=== PATIENT | male | born 1965 | race Caucasian/White ===

== ENCOUNTER 2023-12-30 10:04 | Outpatient (AMB) | payer BC, SELFPAY ==
--- NOTE | 2023-12-30 09:15 | A.OFFPSYCH_ITS ---
Intake Vital Signs 12/30/23 09:16 Height 5 ft 10 in Weight 210 lb Intake Visit Reasons: Booked, Major depression, recurrent, YUSEF (generalized anxiety disorder), ADHD Medication List - Last Reconciled 12/30/23 by Philomena Delgado APRN amlodipine 10 mg PO DAILY atorvastatin 10 mg PO DAILY blood sugar diagnostic (FreeStyle Lite Strips) As directed clonazepam 1 mg PO TID PRN dextroamphetamine-amphetamine 30 mg 1 tab PO BID folic acid 1 mg PO DAILY ibuprofen 400 mg PO TID levothyroxine mcg PO metformin 500 mg PO BID ondansetron HCl mg PO paroxetine HCl 10 mg PO DAILY HPI- Psychiatric Chief Complaint: Booked, Major depression, recurrent, YUSEF (generalized anxiety disorder), ADHD HPI Narrative: Pt reports more anxiety and worry; he has returned to work; he is done with chemotherpay and has had surgery to reverse the colostomy; he reports many days not wanting to get out of bed. He feels confident with his providers. The clonazepam is helpful for increased anxiety and insomnia; He is sleeping a little better with the hydroxyzine. he denies SI or HI; He reports his is very supportive. He feels medication is helpful. Past Psychiatric History: No IPLOC Dr. Goss diagnosed him with ADHD 2014. Pt has been treated for anxiety, depression, ADHD and panic attacks for years; anxiety and panic attacks started in early 30s, depression has improved since on meds. He reports panic attacks decreased now to 1 x month or less Panic attacks: Yes Agoraphobia: No Separation anxiety disorder: No Social phobia: No Specific phobia: No Hypochondriasis: No Body dysmorphic disorder: No Obsessive compulsive disorder: No Generalized anxiety: Yes Post traumatic stress disorder: No Acute stress disorder: No Previous psychiatric history: No Previous inpatient psychiatric hospitalization: No Other previous psychiatric treatment programs: none History of suicidal ideation: No History of suicide attempt: No Medically hospitalized: No History of self injurious behavior: No History of violence: No Current/previous psychiatrist: savana Current/previous therapist: dr goss Subjective Subjective Subjective Medication Compliance: Yes Side effects from medications: No Review of Systems Medical Review of Systems: unchanged Review of Systems Review of Systems Yes all other systems are reviewed and are negative Mental Status Exam Mental Status Exam Patient Appearance: Well Grooomed and Appropriate Patient Orientation: Person, Place, Time and Situation Level of Consciousness: Awake and Alert Patient Behavior: Appropriate and Cooperative Mood Description: Anxious and Sad Affect Description: Anxious and Sad Patient Cognition Impaired: No Ability to Follow Directions: Good Speech Pattern: Clear and Coherent Memory Description: Intact Hallucinations: None Delusions: Not Present Thought Process: Intact and Goal Oriented Thought Content: positive for Intact and positive for Goal Oriented Judgement: Good Assessment and Plan Assessment & Plan (1) Recurrent major depressive disorder: Qualifiers: Major depression episode severity: moderate Active/Remission status: currently active Qualified Code(s): F33.1 - Major depressive disorder, recurrent, moderate Code(s): F33.9 - Major depressive disorder, recurrent, unspecified (2) Generalized anxiety disorder: Code(s): F41.1 - Generalized anxiety disorder Plan increase paxil to 20 mg daily for depression and anxiety continue clonazepam and adderall Medications: New paroxetine HCl (Paxil) 20 mg PO DAILY 30 tabs 3RF clonazepam 1 mg PO TID PRN 90 tabs 2RF anxiety dextroamphetamine-amphetamine 30 mg 1 tab PO BID 60 tabs 0RF Counseling and coordination of Care Pt. Self Management counseling: Light exposure, Maintenance-social rhythm, Med illness tx adherence, Sleep hygiene, Behavior activation and General coping skills Medication management counseling: Effectiveness, Side effects, Dosing range, Duration, Drug interaction and Adherence Diagnosis and Prognosis Counseling: Accuracy of diagnosis, Prognosis over time, Impact of diagnosis on life functions, Impact of family relationship, Problematic behaviors secondary to diagnosis and Adequacy of current interventions Details: I spent 30 minutes reviewing the record, seeing the patient and documenting in the medical record. Counseling provided to the patient/caregiver as outlined below. Addressed patient/caregiver concerns regarding current medication regime including effective adherence. Addressed patient/caregiver concerns regarding diagnosis and prognosis including accuracy of diagnosis, prognosis over time, impact of diagnosis. Addressed patient/caregiver concerns regarding impact of recent stressors. 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
== END 2023-12-30 11:55 | disposition home or self-care (01) ==
LOC: HO.HOP 10:04
PROVIDERS: PCP Internal Medicine; Visit Provider Clinical Nurse Specialist Psychiatric/Mental Health
DX: F33.1 Major depressive disorder, recurrent, moderate (principal); F41.1 Generalized anxiety disorder
CPT/HCPCS: 99214

== ENCOUNTER → 2023-12-30 10:04 | Outpatient (BNVA) | payer BC, SELFPAY | PROVIDERS: PCP Internal Medicine; Visit Provider Clinical Nurse Specialist Psychiatric/Mental Health ==

== ENCOUNTER 2024-02-29 12:56 | Outpatient (AMB) | payer BC, SELFPAY ==
--- NOTE | 2024-02-29 13:18 | A.OFFPSYCH_ITS ---
Intake Intake Visit Reasons: depression, anxiety, ADHD Fruit Receiver Required: No Medication List - Last Reconciled 02/29/24 by Philomena Delgado APRN amlodipine 10 mg PO DAILY atorvastatin 10 mg PO DAILY blood sugar diagnostic (FreeStyle Lite Strips) As directed clonazepam 1 mg PO TID PRN dextroamphetamine-amphetamine 30 mg 1 tab PO BID folic acid 1 mg PO DAILY ibuprofen 400 mg PO TID levothyroxine mcg PO metformin 500 mg PO BID ondansetron HCl mg PO paroxetine HCl (Paxil) 20 mg PO DAILY HPI- Psychiatric Chief Complaint: depression, anxiety, ADHD HPI Narrative: pt reports very little depression; reports anxiety and worry; he reports his cancer treatmetn with surgical removal of most of his colon has caused side effects; he has unpredictable and frequent bowel movements. it has effected his work and out of work activities. it has efffected his self concept; he is coping weill despite the stress; he is able to talk to others about the experience nad the stress; he has good family support; medication continue to be effective. He reports brief solution therapy in session is helpful. Past Psychiatric History: No IPLOC Dr. Galarza diagnosed him with ADHD 2014. Pt has been treated for anxiety, depression, ADHD and panic attacks for years; anxiety and panic attacks started in early 30s, depression has improved since on meds. He reports panic attacks decreased now to 1 x month or less Subjective Subjective Subjective Medication Compliance: Yes Side effects from medications: No Review of Systems Medical Review of Systems: unchanged Mental Status Exam Mental Status Exam Patient Appearance: Well Grooomed Patient Orientation: Person, Place, Time and Situation Level of Consciousness: Awake and Appropriate Patient Behavior: Appropriate Mood Description: Appropriate and Anxious Affect Description: Appropriate and Anxious Patient Cognition Impaired: No Ability to Follow Directions: Good Speech Pattern: Clear and Appropriate Memory Description: Intact Hallucinations: None Delusions: Not Present Thought Process: Intact and Goal Oriented Thought Content: positive for Intact and positive for Goal Oriented Judgement: Fair Assessment and Plan Assessment & Plan (1) ADHD (attention deficit hyperactivity disorder), combined type: Status: Acute Code(s): F90.2 - Attention-deficit hyperactivity disorder, combined type (2) Major depressive disorder, recurrent, in partial remission: Status: Acute Code(s): F33.41 - Major depressive disorder, recurrent, in partial remission (3) YUSEF (generalized anxiety disorder): Status: Acute Code(s): F41.1 - Generalized anxiety disorder Plan continue medication below continue brief solution oriented therapy return in 2 months Medications: Refilled dextroamphetamine-amphetamine 30 mg 1 tab PO BID 60 tabs 0RF clonazepam 1 mg PO TID PRN 90 tabs 2RF anxiety paroxetine HCl (Paxil) 20 mg PO DAILY 30 tabs 3RF Counseling and coordination of Care Medication management counseling: Effectiveness, Side effects, Dosing range, Duration, Drug interaction and Adherence Diagnosis and Prognosis Counseling: Accuracy of diagnosis, Prognosis over time, Impact of diagnosis on life functions, Impact of family relationship, Problematic behaviors secondary to diagnosis and Adequacy of current interventions Details: I spent 45 minutes reviewing the record, seeing the patient and documenting in the medical record. Counseling provided to the patient/caregiver as outlined below. Addressed patient/caregiver concerns regarding current medication regime including effective adherence. Addressed patient/caregiver concerns regarding diagnosis and prognosis including accuracy of diagnosis, prognosis over time, impact of diagnosis. Addressed patient/caregiver concerns regarding impact of recent stressors. 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
== END 2024-02-29 16:40 | disposition home or self-care (01) ==
LOC: HO.HOP 12:56
PROVIDERS: PCP Internal Medicine; Visit Provider Clinical Nurse Specialist Psychiatric/Mental Health
DX: F90.2 Attention-deficit hyperactivity disorder, combined type (principal); F33.41 Major depressive disorder, recurrent, in partial remission; F41.1 Generalized anxiety disorder
CPT/HCPCS: 90833; 99214

== ENCOUNTER → 2024-02-29 12:56 | Outpatient (BNVA) | payer BC, SELFPAY | PROVIDERS: PCP Internal Medicine; Visit Provider Clinical Nurse Specialist Psychiatric/Mental Health ==

== ENCOUNTER 2024-05-01 17:24 | Outpatient (AMB) | payer BC, SELFPAY ==
--- NOTE | 2024-05-01 10:37 | MHC.OFFVISPS ---
Intake Intake Visit Reasons: depression, anxiety Stave And Bolt Equalizer Required: No Medication List - Last Reconciled 05/01/24 by Philomena Delgado APRN amlodipine 10 mg PO DAILY atorvastatin 10 mg PO DAILY blood sugar diagnostic (FreeStyle Lite Strips) As directed clonazepam 1 mg PO TID PRN dextroamphetamine-amphetamine 30 mg 1 tab PO BID folic acid 1 mg PO DAILY ibuprofen 400 mg PO TID levothyroxine mcg PO metformin 500 mg PO BID ondansetron HCl mg PO paroxetine HCl 30 mg PO DAILY HPI- Psychiatric Chief Complaint: depression, anxiety HPI Narrative: anxiety is very high; he has fecal incontinenece every day from after effects of colon cancer treatment; he says it requires several trips to bathroom many times a day and disruptive to his daily life at work and with family; He finds himself anxious and worried about it all the time; pt has tolerated paxil 30mg daily n past and agrees to increase the paxil to seei f that will help; he is working with his PCP and GI doctors to reduce the fecal incontinence. no SI or Hi Past Psychiatric History: No IPLOC Dr. Galarza diagnosed him with ADHD 2014. Pt has been treated for anxiety, depression, ADHD and panic attacks for years; anxiety and panic attacks started in early 30s, depression has improved since on meds. He reports panic attacks decreased now to 1 x month or less Subjective Subjective Subjective Medication Compliance: Yes Side effects from medications: No Review of Systems Medical Review of Systems: unchanged Mental Status Exam Mental Status Exam Patient Appearance: Well Grooomed and Appropriate Patient Orientation: Person, Place, Time and Situation Level of Consciousness: Awake Patient Behavior: Appropriate Mood Description: Anxious Affect Description: Anxious Patient Cognition Impaired: No Ability to Follow Directions: Good Speech Pattern: Clear Memory Description: Intact Hallucinations: None Delusions: Not Present Thought Process: Intact and Goal Oriented Thought Content: positive for Intact and positive for Goal Oriented Judgement: Good Telehealth Telehealth Telehealth Platform: Other (please specify) ([email or web address]) Location of provider rendering services: practice address Location of patient: address on file Patient Identification confirmed using: Name, : Yes Telehealth method: video Patient verbally consented to treatment: Yes Patient verbally consented to billing insurance company: Yes Patient informed of any privacy concerns related to visit: Yes Minutes spent on Phone/Video with Pt.: 25 Assessment and Plan Assessment & Plan (1) YUSEF (generalized anxiety disorder): Status: Acute Code(s): F41.1 - Generalized anxiety disorder (2) Major depressive disorder, recurrent, in partial remission: Status: Acute Code(s): F33.41 - Major depressive disorder, recurrent, in partial remission (3) ADHD (attention deficit hyperactivity disorder), combined type: Status: Acute Code(s): F90.2 - Attention-deficit hyperactivity disorder, combined type Plan continue adderall as is continue clonazepam as is increase paxil to 30mg daily Medications: New paroxetine HCl 30 mg PO DAILY 90 tabs 1RF Counseling and coordination of Care Pt. Self Management counseling: Mod caffeine/ETOH intake, Sleep hygiene, Behavior activation and General coping skills Medication management counseling: Effectiveness, Side effects, Dosing range, Duration, Drug interaction and Adherence Diagnosis and Prognosis Counseling: Accuracy of diagnosis, Prognosis over time, Impact of diagnosis on life functions, Impact of family relationship, Problematic behaviors secondary to diagnosis and Adequacy of current interventions Details: I spent 36 minutes reviewing the record, seeing the patient and documenting in the medical record. Counseling provided to the patient/caregiver as outlined below. Addressed patient/caregiver concerns regarding current medication regime including effective adherence. Addressed patient/caregiver concerns regarding diagnosis and prognosis including accuracy of diagnosis, prognosis over time, impact of diagnosis. Addressed patient/caregiver concerns regarding impact of recent stressors. [facility] Medical History GERD (gastroesophageal reflux disease) Congenital hypothyroidism Colon cancer metastasized to liver Surgical History History of colostomy reversal Social History: lives with and youngest child, works FT in [employer] Substance History: none Trauma History: loss of sister to ovarian cancer, loss of niece to flu Coding Level of Care Code Tele Est Pt Level 4 (33430) Diagnoses YUSEF (generalized anxiety disorder) F41.1 Major depressive disorder, recurrent, in partial remission F33.41 ADHD (attention deficit hyperactivity disorder), combined type F90.2
== END 2024-05-01 17:27 | disposition home or self-care (01) ==
LOC: HO.HOP 17:24
PROVIDERS: PCP Internal Medicine; Visit Provider Clinical Nurse Specialist Psychiatric/Mental Health
DX: F41.1 Generalized anxiety disorder (principal); F33.41 Major depressive disorder, recurrent, in partial remission; F90.2 Attention-deficit hyperactivity disorder, combined type
CPT/HCPCS: 99214

== ENCOUNTER → 2024-05-01 17:24 | Outpatient (BNVA) | payer BC, SELFPAY | PROVIDERS: PCP Internal Medicine; Visit Provider Clinical Nurse Specialist Psychiatric/Mental Health | DX: F41.1 Generalized anxiety disorder (principal); F33.41 Major depressive disorder, recurrent, in partial remission; F90.2 Attention-deficit hyperactivity disorder, combined type ==

== ENCOUNTER 2024-06-05 10:37 | Outpatient (AMB) | payer BC, SELFPAY ==
--- NOTE | 2024-06-05 10:03 | MHC.OFFVISPS ---
Intake Intake Visit Reasons: depression Care Associate Required: No Medication List - Last Reconciled 06/05/24 by Philomena Delgado APRN amlodipine 10 mg PO DAILY atorvastatin 10 mg PO DAILY blood sugar diagnostic (FreeStyle Lite Strips) As directed clonazepam 1 mg PO TID PRN dextroamphetamine-amphetamine 30 mg 1 tab PO BID folic acid 1 mg PO DAILY ibuprofen 400 mg PO TID levothyroxine mcg PO metformin 500 mg PO BID ondansetron HCl mg PO paroxetine HCl 30 mg PO DAILY HPI- Psychiatric Chief Complaint: depression HPI Narrative: Pt reports mood improved; anxiety continues but improved; his medical conditin is improving which is helping; He is coping better overall; no side effects; no problems sleeping; work and home going well. Past Psychiatric History: No IPLOC Dr. Galarza diagnosed him with ADHD 2014. Pt has been treated for anxiety, depression, ADHD and panic attacks for years; anxiety and panic attacks started in early 30s, depression has improved since on meds. He reports panic attacks decreased now to 1 x month or less Subjective Subjective Subjective Medication Compliance: Yes Side effects from medications: No Review of Systems Medical Review of Systems: unchanged Mental Status Exam Mental Status Exam Patient Appearance: Well Grooomed and Appropriate Patient Orientation: Person, Place, Time and Situation Level of Consciousness: Awake Patient Behavior: Appropriate Mood Description: Calm and Cheerful Affect Description: Calm and Cheerful Patient Cognition Impaired: No Ability to Follow Directions: Good Speech Pattern: Clear Memory Description: Intact Hallucinations: None Delusions: Not Present Thought Process: Intact Thought Content: positive for Intact and positive for Goal Oriented Judgement: Fair Telehealth Telehealth Telehealth Platform: Other (please specify) ([email or web address]) Location of provider rendering services: practice address Location of patient: address on file Patient Identification confirmed using: Name, : No Telehealth method: video Patient verbally consented to treatment: Yes Patient verbally consented to billing insurance company: Yes Patient informed of any privacy concerns related to visit: Yes Minutes spent on Phone/Video with Pt.: 28 Assessment and Plan Assessment & Plan (1) YUSEF (generalized anxiety disorder): Status: Acute Code(s): F41.1 - Generalized anxiety disorder (2) Major depressive disorder, recurrent, in partial remission: Status: Acute Code(s): F33.41 - Major depressive disorder, recurrent, in partial remission (3) ADHD (attention deficit hyperactivity disorder), combined type: Status: Acute Code(s): F90.2 - Attention-deficit hyperactivity disorder, combined type Plan continue medications as below and including adderall however he does not need a refill on adderall yet- he will send message when needed Medications: Refilled paroxetine HCl 30 mg PO DAILY 90 tabs 1RF clonazepam 1 mg PO TID PRN 90 tabs 2RF anxiety Counseling and coordination of Care Pt. Self Management counseling: Maintenance-social rhythm, Mod caffeine/ETOH intake, Nutrition education and improvement and Sleep hygiene Medication management counseling: Effectiveness, Side effects, Dosing range, Duration, Drug interaction and Adherence Diagnosis and Prognosis Counseling: Accuracy of diagnosis, Prognosis over time, Impact of diagnosis on life functions, Impact of family relationship, Problematic behaviors secondary to diagnosis and Adequacy of current interventions Details: I spent 30 minutes reviewing the record, seeing the patient and documenting in the medical record. Counseling provided to the patient/caregiver as outlined below. Addressed patient/caregiver concerns regarding current medication regime including effective adherence. Addressed patient/caregiver concerns regarding diagnosis and prognosis including accuracy of diagnosis, prognosis over time, impact of diagnosis. Addressed patient/caregiver concerns regarding impact of recent stressors. 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
== END 2024-06-05 10:38 | disposition home or self-care (01) ==
LOC: HO.HOP 10:37
PROVIDERS: PCP Internal Medicine; Visit Provider Clinical Nurse Specialist Psychiatric/Mental Health
DX: F41.1 Generalized anxiety disorder (principal); F33.41 Major depressive disorder, recurrent, in partial remission; F90.2 Attention-deficit hyperactivity disorder, combined type
CPT/HCPCS: 99214

== ENCOUNTER → 2024-06-05 10:37 | Outpatient (BNVA) | payer BC, SELFPAY | PROVIDERS: PCP Internal Medicine; Visit Provider Clinical Nurse Specialist Psychiatric/Mental Health | DX: F41.1 Generalized anxiety disorder (principal); F33.41 Major depressive disorder, recurrent, in partial remission; F90.2 Attention-deficit hyperactivity disorder, combined type ==

== ENCOUNTER 2024-09-05 11:49 | Outpatient (AMB) | payer BC, SELFPAY ==
--- NOTE | 2024-09-05 11:30 | MHC.OFFVISPS ---
Intake Intake Visit Reasons: depression Fiscal Analyst Required: No Medication List - Last Reconciled 09/05/24 by Philomena Delgado APRN amlodipine 10 mg PO DAILY atorvastatin 10 mg PO DAILY blood sugar diagnostic (FreeStyle Lite Strips) As directed clonazepam 1 mg PO TID PRN dextroamphetamine-amphetamine 30 mg 1 tab PO BID folic acid 1 mg PO DAILY ibuprofen 400 mg PO TID levothyroxine mcg PO metformin 500 mg PO BID ondansetron HCl mg PO paroxetine HCl 30 mg PO DAILY HPI- Psychiatric Chief Complaint: depression HPI Narrative: Patient reports improved mood. He reports anxiety is mild and manageable. He reports good focus and concentration. He is functioning well at home and at work. His physical health is improving he has been cancer free for a year and a half and he is feeling more hopeful and positive. No side effects from the medication. No other medical changes. Past Psychiatric History: No IPLOC Dr. Galarza diagnosed him with ADHD 2014. Pt has been treated for anxiety, depression, ADHD and panic attacks for years; anxiety and panic attacks started in early 30s, depression has improved since on meds. He reports panic attacks decreased now to 1 x month or less Subjective Subjective Subjective Medication Compliance: Yes Side effects from medications: No Review of Systems Medical Review of Systems: unchanged Mental Status Exam Mental Status Exam Patient Appearance: Well Grooomed Patient Orientation: Person, Place, Time and Situation Level of Consciousness: Awake and Appropriate Patient Behavior: Appropriate Mood Description: Happy and Anxious Affect Description: Happy and Anxious Patient Cognition Impaired: No Ability to Follow Directions: Good Speech Pattern: Clear Memory Description: Intact Hallucinations: None Delusions: Not Present Thought Process: Intact Thought Content: positive for Intact Judgement: Good Telehealth Telehealth Telehealth Platform: Other (please specify) ([email or web address]) Location of provider rendering services: practice address Location of patient: address on file Patient Identification confirmed using: Name, : Yes Telehealth method: video Patient verbally consented to treatment: Yes Patient verbally consented to billing insurance company: Yes Patient informed of any privacy concerns related to visit: Yes Minutes spent on Phone/Video with Pt.: 30 Assessment and Plan Assessment & Plan (1) YUSEF (generalized anxiety disorder): Status: Acute Code(s): F41.1 - Generalized anxiety disorder (2) Major depressive disorder, recurrent, in partial remission: Status: Acute Code(s): F33.41 - Major depressive disorder, recurrent, in partial remission (3) ADHD (attention deficit hyperactivity disorder), combined type: Status: Acute Code(s): F90.2 - Attention-deficit hyperactivity disorder, combined type Plan continue meds below return in 3 moths Medications: Refilled clonazepam 1 mg PO TID PRN 90 tabs 2RF anxiety dextroamphetamine-amphetamine 30 mg 1 tab PO BID 60 tabs 0RF paroxetine HCl 30 mg PO DAILY 90 tabs 1RF Counseling and coordination of Care Pt. Self Management counseling: Maintenance-social rhythm, Mod caffeine/ETOH intake, Sleep hygiene and General coping skills Medication management counseling: Effectiveness, Side effects, Dosing range, Duration, Drug interaction and Adherence Diagnosis and Prognosis Counseling: Accuracy of diagnosis, Prognosis over time, Impact of diagnosis on life functions and Adequacy of current interventions Details: I spent 40 minutes reviewing the record, seeing the patient and documenting in the medical record. Counseling provided to the patient/caregiver as outlined below. Addressed patient/caregiver concerns regarding current medication regime including effective adherence. Addressed patient/caregiver concerns regarding diagnosis and prognosis including accuracy of diagnosis, prognosis over time, impact of diagnosis. Addressed patient/caregiver concerns regarding impact of recent stressors. 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
== END 2024-09-05 11:50 | disposition home or self-care (01) ==
LOC: HO.HOP 11:49
PROVIDERS: PCP Internal Medicine; Visit Provider Clinical Nurse Specialist Psychiatric/Mental Health
DX: F41.1 Generalized anxiety disorder (principal); F33.41 Major depressive disorder, recurrent, in partial remission; F90.2 Attention-deficit hyperactivity disorder, combined type
CPT/HCPCS: 99214

== ENCOUNTER 2024-11-13 10:22 | Outpatient (AMB) | payer BC, SELFPAY ==
--- NOTE | 2024-11-13 09:44 | A.OFFPSYCH_ITS ---
Intake Intake Visit Reasons: depression [employer] Required: No Medication List - Last Reconciled 11/13/24 by Philomena Delgado, JOSE amlodipine 10 mg PO DAILY atorvastatin 10 mg PO DAILY blood sugar diagnostic (FreeStyle Lite Strips) As directed cholestyramine-aspartame 4 gram ea PO DAILY clonazepam 1 mg PO TID PRN dextroamphetamine-amphetamine 30 mg 1 tab PO BID ferrous sulfate 325 mg PO DAILY folic acid 1 mg PO DAILY ibuprofen 400 mg PO TID levothyroxine mcg PO DAILY metformin 500 mg PO BID oxycodone mg PO Q12H PRN paroxetine HCl 30 mg PO DAILY HPI- Psychiatric Chief Complaint: depression HPI Narrative: Mood improved anxiety reduced; he is feeling much better; He has had less GI upset and urgency to defecate since starting new med and increased fiber. no side effects from meds; takes clonazepam 1-2 times a day as needed; doing well at work; looking forward to nursing home next year. no SI or HI Past Psychiatric History: No IPLOC Dr. Galarza diagnosed him with ADHD 2014. Pt has been treated for anxiety, depression, ADHD and panic attacks for years; anxiety and panic attacks started in early 30s, depression has improved since on meds. He reports panic attacks decreased now to 1 x month or less Subjective Subjective Subjective Medication Compliance: Yes Side effects from medications: No Review of Systems Medical Review of Systems: unchanged Mental Status Exam Mental Status Exam Patient Appearance: Well Grooomed Patient Orientation: Person, Place, Time and Situation Level of Consciousness: Awake and Appropriate Patient Behavior: Appropriate and Cooperative Mood Description: Happy Affect Description: Happy Patient Cognition Impaired: No Ability to Follow Directions: Good Speech Pattern: Clear and Appropriate Memory Description: Intact Hallucinations: None Delusions: Not Present Thought Process: Intact and Goal Oriented Thought Content: positive for Intact and positive for Goal Oriented Judgement: Good Telehealth Telehealth Telehealth Platform: Other (please specify) ([email or web address]) Location of provider rendering services: practice address Location of patient: address on file Patient Identification confirmed using: Name, : Yes Telehealth method: video Patient verbally consented to treatment: Yes Patient verbally consented to billing insurance company: Yes Patient informed of any privacy concerns related to visit: Yes Minutes spent on Phone/Video with Pt.: 30 Assessment and Plan Assessment & Plan (1) YUSEF (generalized anxiety disorder): Status: Acute Code(s): F41.1 - Generalized anxiety disorder (2) Major depressive disorder, recurrent, in partial remission: Status: Acute Code(s): F33.41 - Major depressive disorder, recurrent, in partial remission (3) ADHD (attention deficit hyperactivity disorder), combined type: Status: Acute Code(s): F90.2 - Attention-deficit hyperactivity disorder, combined type Medications: Refilled clonazepam 1 mg PO TID PRN 90 tabs 2RF anxiety dextroamphetamine-amphetamine 30 mg 1 tab PO BID 60 tabs 0RF paroxetine HCl 30 mg PO DAILY 90 tabs 1RF Counseling and coordination of Care Medication management counseling: Effectiveness, Side effects, Dosing range, Duration, Drug interaction and Adherence Diagnosis and Prognosis Counseling: Accuracy of diagnosis, Prognosis over time, Impact of diagnosis on life functions, Impact of family relationship, Problematic behaviors secondary to diagnosis and Adequacy of current i nterventions Details: I spent 40 minutes reviewing the record, seeing the patient and documenting in the medical record. Counseling provided to the patient/caregiver as outlined below. Addressed patient/caregiver concerns regarding current medication regime including effective adherence. Addressed patient/caregiver concerns regarding diagnosis and prognosis including accuracy of diagnosis, prognosis over time, impact of diagnosis. Addressed patient/caregiver concerns regarding impact of recent stressors. 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
--- OUTSIDE RECORDS SUMMARY | 2024-11-13 11:11 | XMS_ITS | Encounter Summary ---
Author Organization [facility] [place] [place] [address] Care Team Providers Care Clinical Laboratory Medical Director Name Role Phone Hamzah Adames MD Primary Care Provider [phone] Encounter Details Date Type Department Care Team (Latest Contact Info) Description 10/26/2024 12:59 PM EST - 10/26/2024 11:59 PM EST Hospital Encounter [facility] [address] [id number] Mary Ramirez MD [address] [place] [id number] Rectal cancer (CMS/HCC); Hypothyroidism, unspecified type; Essential hypertension, benign; Rectosigmoid junction carcinoma (CMS/HCC); DM (diabetes mellitus), type 2 with peripheral vascular complications (CMS/HCC); Mixed hyperlipidemia; Screening for prostate cancer Discharge Disposition: Home or Self Care Social History Tobacco Use Types Packs/Day Years Used Date Smoking Tobacco: Never Smokeless Tobacco: Never Alcohol Use Standard Drinks/Week Comments Not Currently 0 (1 standard drink = 0.6 oz pur e alcohol) Housing Instability Answer Date Recorde d Are you worried that in the next 2 months you may not have stable housing? Patient declined 10/18/2024 Food Access & Nutrition Answer Date Rec orded Do you have access to a vari ety of food including fruits and vegetables? Patient declined 10/18/2024 Access to Healthcare Answer Date Record ed Within the last 3 months, ho w many times did you visit the emergency department for your medical care? 0 10/18/2024 Health Literacy Answer Date Recorded How often do you need to hav e someone help you when you read instructions, pamphlets, or other written material from your doctor or pharmacy? Never 10/18/2024 Caregiver: How often do you need to have someone help you when you read instructions, pamphlets, or other written material from your doctor or pharmacy? Not on file 10/18/2024 Financial Risk Answer Date Recorded How hard is it for you to pa y for the very basics like food, housing, medical care, and air conditioning / heating? Patient declined 10/18/2024 Transportation Answer Date Recorded Has the lack of transportati on kept you from meetings, work, or from getting things needed for daily living? No Has the lack of transportati on kept you from medical appointments or from getting medications? No 10/18/2024 Social Isolation Answer Date Recorded How often do you feel lonely or isolated from th ose around you? Never 10/18/2024 Food Risk Answer Date Recorded Within the past 12 months we worried whether our food would run out before we got money to buy more. Never true 10/18/2024 Within the past 12 months th e food we bought just didn't last and we didn't have money to get more. Never true 10/18/2024 Dependent Care Answer Date Recorded Do you need help finding or paying for care for your loved ones. For example, director child abuse therapy or elderly care for an older adult? No 10/18/2024 Education Answer Date Recorded Do you think completing more education or training, like finishing a GED, going to college, or learning a trade, would be helpful for you? No 10/18/2024 Employment and Income Answer Date Recor ded During the last four weeks, have you been actively looking for work? No 10/18/2024 Sex and Gender Information Value Date Recorded Sex Assigned at Male 10/26/2024 12:56 PM EST Gender Identity Male 10/26/2024 12:56 PM EST Sexual Orientation Straight 10/26/2024 12 :56 PM EST Job Start Date Occupation Industry Not on file Not on file Not on file documented as of this encounter Medications at Time of Discharge Medication Sig Dispensed Refills Start Date End Date amLODIPine (NORVASC) 10 mg tablet Take 1 tablet (10 mg total) by mouth 1 (one) time each day. 90 tablet 1 10/22/2024 atorvastatin (LIPITOR) 10 mg tablet Take 1 tablet (10 mg total) by mouth 1 (one) time each day. 90 tablet 1 10/19/2024 bisacodyL (Dulcolax, bisacodyl,) 5 mg EC tablet Take 2 tablets (10 mg total) by mouth. right before beginning bowel prep. Follow instructions given by office for timing. 05/29/2022 blood sugar diagnostic (FREESTYLE LITE STRIPS MISC) 1 EA by Other route 1 (one) time each day. 06/18/2022 blood-glucose meter kit 1 each by Other route 1 (one) time each day. 01/29/2022 cholecalciferol (VITAMIN D-3) 50 mcg (2,000 unit) tablet Take 1 tablet (2,000 Units total) by mouth 1 (one) time each day. 05/09/2024 clonazePAM (KlonoPIN) 1 mg tablet Take 1 tablet (1 mg total) by mouth 1 (one) time each day if needed for anxiety. 09/08/2019 ferrous sulfate 325 mg (65 mg elemental iron) tablet TAKE 1 TABLET BY MOUTH EVERY DAY 90 tablet 09/19/2024 folic acid (FOLVITE) 1 mg tablet TAKE 1 TABLET BY MOUTH EVERY DAY 90 tablet 09/14/2024 FREESTYLE LANCETS MISC 1 EA by Other route 1 (one) time each day. 01/29/2022 ibuprofen (ADVIL,MOTRIN) 400 mg tablet Take 1 tablet (400 mg total) by mouth every 8 (eight) hours if needed for mild pain. TAKE WITH FOOD 90 tablet 10/22/2024 levothyroxine (SYNTHROID, LEVOTHROID) 125 mcg tablet Take 1 tablet (125 mcg total) by mouth 1 (one) time each day. 90 tablet 1 10/30/2024 neomycin (MYCIFRADIN) 500 mg tablet Take 2 tablets (1,000 mg total) by mouth 4 (four) times a day. . Take at 8 am, noon, 4 pm and 8 pm the day before surgery 03/01/2023 oxyCODONE (ROXICODONE) 5 mg immediate release tabletIndications:Can cer, metastatic to liver (CMS/HCC) Take 1 tablet (5 mg total) by mouth every 8 (eight) hours if needed for severe pain for up to 90 doses. Max Daily Amount: 15 mg 90 tablet 10/25/2024 PARoxetine (PAXIL) 10 mg tablet Take 1 tablet (10 mg total) by mouth 1 (one) time each day in the morning. levothyroxine (SYNTHROID, LEVOTHROID) 112 mcg tablet Take 1 tablet (112 mcg total) by mouth 1 (one) time each day. Wednesday-Wednesday and 2 tablets every Wednesday04/16/2022 10/30/2024 metFORMIN (GLUCOPHAGE) 500 mg tablet Take 1 tablet (500 mg total) by mouth 1 (one) time each day with breakfast. AND 1 TABLET WITH DINNER 05/17/2022 11/02/2024 documented as of this encounter Discharge Disposition Disposition Code Departure Means Destination Home or Self Care documented in this encounter Progress Notes * Osiris Ortiz RN - 10/26/2024 1:00 PM EST Pt arrives stable for port draw- noted PCP labs in system. Pt reports he has been trying to get back on track with apts as he cancelled some during the holiday season. Will see Dr Lopez next month. Pt reports urgency with bowel movements- message sent to Chloe VOSS who will call and follow up. Pt agrees to plan. Labs drawn per protocol without incident. Stable upon discharge with appts in place. documented in this encounter Plan of Treatment Upcoming Encounters Date Type Department Care Team (Late st Contact Info) Description 11/27/2024 4:15 PM EST Office Visit General Surgery - [place] [address] [facility] [address] [place] [phone] Trell Lopez MD 175 [facility] [address] [place], [place] [id number] 12/07/2024 1:[address] [facility] [address] [facility] [address] [place] [address] 01/26/2025 9:30 AM EDT Office Visit [facility] On[facility] [address] [place] [address] Mary Ramirez MD [address] [place] [address] documented as of this encounter Procedures Procedure Name Priority Date/Time Associated Diagnosis Comments PROSTATE SPECIFIC ANTIGEN SCREEN Routine 10/26/2024 1:04 PM EST Screening for prostate cancer THYROID STIMULATING HORMONE WITH REFLEX TO FREE T4 AND FREE T3 Routine 10/26/2024 1:04 PM EST Hypothyroidism, unspecified type Essential hypertension, benign Rectosigmoid junction carcinoma (CMS/HCC) DM (diabetes mellitus), type 2 with peripheral vascular complications (CMS/HCC) Mixed hyperlipidemia Screening for prostate cancer FREE THYROXINE WITH REFLEX TO FREE TRIIODOTHYRONINE Routine 10/26/2024 1:04 PM EST Hypothyroidism, unspecified type Essential hypertension, benign Rectosigmoid junction carcinoma (CMS/HCC) DM (diabetes mellitus), type 2 with peripheral vascular complications (CMS/HCC) Mixed hyperlipidemia Screening for prostate cancer LIPID PANEL WITH REFLEX TO DIRECT LDL Routine 10/26/2024 1:04 PM EST Hypothyroidism, unspecified type Essential hypertension, benign Rectosigmoid junction carcinoma (CMS/HCC) DM (diabetes mellitus), type 2 with peripheral vascular complications (CMS/HCC) Mixed hyperlipidemia Screening for prostate cancer CBC WITH AUTO DIFFERENTIAL Routine 10/26/2024 1:04 PM EST Rectal cancer (CMS/HCC) CBC AND DIFFERENTIAL Routine 10/26/2024 1:04 PM EST Rectal cancer (CMS/HCC) TRIIODOTHYRONINE FREE Routine 10/26/2024 1:04 PM EST Hypothyroidism, unspecified type Essential hypertension, benign Rectosigmoid junction carcinoma (CMS/HCC) DM (diabetes mellitus), type 2 with peripheral vascular complications (CMS/HCC) Mixed hyperlipidemia Screening for prostate cancer MAGNESIUM Routine 10/26/2024 1:04 PM EST Hypothyroidism, unspecified type Essential hypertension, benign Rectosigmoid junction carcinoma (CMS/HCC) DM (diabetes mellitus), type 2 with peripheral vascular complications (CMS/HCC) Mixed hyperlipidemia Screening for prostate cancer HEMOGLOBIN A1C Routine 10/26/2024 1:04 PM EST Hypothyroidism, unspecified type Essential hypertension, benign Rectosigmoid junction carcinoma (CMS/HCC) DM (diabetes mellitus), type 2 with peripheral vascular complications (CMS/HCC) Mixed hyperlipidemia Screening for prostate cancer CARCINOEMBRYONIC ANTIGEN Routine 10/26/2024 1:04 PM EST Rectal cancer (CMS/HCC) COMPREHENSIVE METABOLIC PANEL Routine 10/26/2024 1:04 PM EST Rectal cancer (CMS/HCC) documented in this encounter Results * Triiodothyronine free (10/26/2024 1:04 PM EST) T3, Free 300 230 - 420 pcg/dL LAB CHEMISTRY METHOD 10/26/2024 3:43 PM EST [facility] Blood Blood sample taken from central line / Unknown Existing Catheter / Unknown 10/26/2024 1:04 PM EST 10/26/2024 1:49 PM EST Stephanie XIE LAB BLOOD ORDERA BLES [facility] [address] [place] [address], * Free thyroxine with reflex to free triiodothyronine (10/26/2024 1:04 PM EST) Free T4 1.36 0.70 - 1.80 ng/dL LAB CHEMISTRY METHOD 10/26/2024 3:04 PM EST [facility] Blood Blood sample taken from central line / Unknown Existing Catheter / Unknown 10/26/2024 1:04 PM EST 10/26/2024 1:49 PM EST Stephanie XIE LAB BLOOD ORDERA BLES [facility] [address] [place] [address], * (ABNORMAL) CBC auto differential (10/26/2024 1:04 PM EST) [facility] WBC 5.8 4.8 - 10.8 K/mcL LAB HEMETOLOGY METHOD 10/26/2024 2:02 PM [facility] RBC 4.60 4.50 - 5.50 M/mcL LAB HEMETOLOGY METHOD 10/26/2024 2:02 PM [facility] Hemoglobin 15.4 13.5 - 17.5 g/dL LAB HEMETOLOGY METHOD 10/26/2024 2:02 PM [facility] Hematocrit 43.3 42.0 - 54.0 % LAB HEMETOLOGY METHOD 10/26/2024 2:02 PM [facility] MCV 93.5 79.0 - 98.0 FL LAB HEMETOLOGY METHOD 10/26/2024 2:02 PM [facility] MCH 33.3(H) 27.0 - 32.0 pcg LAB HEMETOLOGY METHOD 10/26/2024 2:02 PM [facility] MCHC 35.6 32.0 - 37.0 g/dL LAB HEMETOLOGY METHOD 10/26/2024 2:02 PM [facility] RDW 12.8 11.0 - 15.0 % LAB HEMETOLOGY METHOD 10/26/2024 2:02 PM [facility] Platelets 232 130 - 400 K/mcL LAB HEMETOLOGY METHOD 10/26/2024 2:02 PM [facility] MPV 10.9 7.0 - 11.0 FL LAB HEMETOLOGY METHOD 10/26/2024 2:02 PM [facility] NRBC 0.0 <1.0 % LAB HEMETOLOGY METHOD 10/26/2024 2:02 PM [facility] NRBC Absolute 0.00 <0.10 K/mcL LAB HEMETOLOGY METHOD 10/26/2024 2:02 PM [facility] Neutrophils Relative 63.1 % LAB HEMETOLOGY METHOD 10/26/2024 2:02 PM [facility] Lymphocytes Relative 22.6 % LAB HEMETOLOGY METHOD 10/26/2024 2:02 PM [facility] Monocytes Relative 8.0 % LAB HEMETOLOGY METHOD 10/26/2024 2:02 PM [facility] Eosinophils Relative 4.5 % LAB HEMETOLOGY METHOD 10/26/2024 2:02 PM [facility] Basophils Relative 0.9 % LAB HEMETOLOGY METHOD 10/26/2024 2:02 PM [facility] Immature Granulocytes Relative 0.9 % LAB HEMETOLOGY METHOD 10/26/2024 2:02 PM [facility] Neutrophils Absolute 3.64 1.50 - 7.00 K/mcL LAB HEMETOLOGY METHOD 10/26/2024 2:02 PM [facility] Lymphocytes Absolute 1.30 1.00 - 5.00 K/mcL LAB HEMETOLOGY METHOD 10/26/2024 2:02 PM [facility] Monocytes Absolute 0.46 0.20 - 1.00 K/mcL LAB HEMETOLOGY METHOD 10/26/2024 2:02 PM [facility] Eosinophils Absolute 0.26 0.00 - 0.50 K/mcL LAB HEMETOLOGY METHOD 10/26/2024 2:02 PM [facility] Basophils Absolute 0.05 0.00 - 0.20 K/mcL LAB HEMETOLOGY METHOD 10/26/2024 2:02 PM EST [facility] Immature Granulocytes Absolute 0.05(H) 0.00 - 0.03 K/mcL LAB HEMETOLOGY METHOD 10/26/2024 2:02 PM EST [facility] Blood Blood sample taken from central line / Unknown Existing Catheter / Unknown 10/26/2024 1:04 PM EST 10/26/2024 1:49 PM EST Subramony James SILVA LAB BLOOD O RDERABLES [facility] [address] [place] [address], [place] [phone] * (ABNORMAL) Lipid panel with reflex to direct LDL (10/26/2024 1:04 PM EST) Cholesterol 166 0 - 200 mg/dL LAB CHEMISTRY METHOD 10/26/2024 2:44 PM [facility] Triglycerides 225(H) 0 - 150 mg/dL LAB CHEMISTRY METHOD 10/26/2024 2:44 PM [facility] HDL 36(L) >=40 mg/dL LAB CHEMISTRY METHOD 10/26/2024 2:44 PM [facility] LDL Calculated 85 0 - 100 mg/dL LAB CHEMISTRY METHOD 10/26/2024 2:44 PM [facility] VLDL Cholesterol Chema 45 mg/dL LAB CHEMISTRY METHOD 10/26/2024 2:44 PM [facility] Non HDL Chol. (LDL+VLDL) 130 <145 mg/dL LAB CHEMISTRY METHOD 10/26/2024 2:44 PM [facility] Chol/HDL Ratio 4.6(H) 0.0 - 4.4 LAB CHEMISTRY METHOD 10/26/2024 2:44 PM [facility] Blood Blood sample taken from central line / Unknown Existing Catheter / Unknown 10/26/2024 1:04 PM EST 10/26/2024 1:49 PM EST Stephanie Martinez ROJAS LAB BLOOD ORDERA BLES Performing Organization Address [facility] de Phone Number [facility] [address] [place] [address], * Prostate specific antigen screen (10/26/2024 1:04 PM EST) PSA 0.15 0.00 - 4.00 ng/mL LAB CHEMISTRY METHOD 10/26/2024 2:44 PM EST [facility] Blood Blood sample taken from central line / Unknown Existing Catheter / Unknown 10/26/2024 1:04 PM EST 10/26/2024 1:49 PM EST Narrative [facility] - 10/26/2024 2:44 PM EST The Siemens Advia Centaur Chemiluminescent Immunoassay is used. Results obtained with different assay methods or kits cannot be used interchangeably. Results cannot be interpreted as absolute evidence of the presence or absence of malignant disease. Stephaniecarlton Martinez ND LAB BLOOD ORDERA BLES Performing Organization Address [facility] de Phone Number [facility] [address] [place] [address], * (ABNORMAL) Thyroid stimulating hormone with reflex to free t4 and free t3 (10/26/2024 1:04 PM EST) TSH 9.63(H) 0.40 - 4.00 mcIU/mL LAB CHEMISTRY METHOD 10/26/2024 2:39 PM EST [facility] Blood Blood sample taken from central line / Unknown Existing Catheter / Unknown 10/26/2024 1:04 PM EST 10/26/2024 1:49 PM EST Stephanie Martinez ROJAS LAB BLOOD ORDERA BLES Performing Organization Address City/[facility]/ZIP Co de Phone Number [facility] [address] [place] [address], * Magnesium (10/26/2024 1:04 PM EST) Magnesium 2.0 1.9 - 2.6 mg/dL LAB CHEMISTRY METHOD 10/26/2024 2:31 PM EST [facility] Blood Blood sample taken from central line / Unknown Existing Catheter / Unknown 10/26/2024 1:04 PM EST 10/26/2024 1:49 PM EST Stephanie Martinez ROJAS LAB BLOOD ORDERA BLES Performing Organization Address [facility] Co de Phone Number [facility] [address] [place] [address], * Hemoglobin A1c (10/26/2024 1:04 PM EST) Hemoglobin A1C 5.9 <6.5 % LAB CHEMISTRY METHOD 10/26/2024 8:52 PM EST [facility] Mean Bld Glu Estim. 123 mg/dL LAB CHEMISTRY METHOD 10/26/2024 8:52 PM EST [facility] Blood Blood sample taken from central line / Unknown Existing Catheter / Unknown 10/26/2024 1:04 PM EST 10/26/2024 1:49 PM EST Stephanie Martinez ROJAS LAB BLOOD ORDERA BLES Performing Organization Address City/[facility]/ZIP Co de Phone Number [facility] [address] [place] [address], [place] [phone] * CEA (10/26/2024 1:04 PM EST) CEA <2.0 0.0 - 5.0 ng/mL LAB CHEMISTRY METHOD 10/26/2024 2:45 PM [facility] Blood Blood sample taken from central line / Unknown Existing Catheter / Unknown 10/26/2024 1:04 PM EST 10/26/2024 1:49 PM EST [facility] - 10/26/2024 2:45 PM EST The Siemens Advia Centaur Chemiluminescent Immunoassay is used. Results obtained with different assay methods or kits cannot be used interchangeably. Results cannot be interpreted as absolute evidence of the presence or absence of malignant disease. Mary Ramirez MD LAB BLOOD O RDERABLES [facility] [address] [place] [address], [place] [phone] * (ABNORMAL) Comprehensive metabolic panel (10/26/2024 1:04 PM EST) Sodium 136 133 - 145 mmol/L LAB CHEMISTRY METHOD 10/26/2024 2:44 PM [facility] Potassium 3.6 3.5 - 5.5 mmol/L LAB CHEMISTRY METHOD 10/26/2024 2:44 PM [facility] Chloride 103 96 - 110 mmol/L LAB CHEMISTRY METHOD 10/26/2024 2:44 PM [facility] CO2 26 21 - 32 mmol/L LAB CHEMISTRY METHOD 10/26/2024 2:44 PM [facility] Anion Gap 7 3 - 11 LAB CHEMISTRY METHOD 10/26/2024 2:44 PM [facility] Glucose 108(H) 70 - 100 mg/dL LAB CHEMISTRY METHOD 10/26/2024 2:44 PM [facility] BUN 10 5 - 25 mg/dL LAB CHEMISTRY METHOD 10/26/2024 2:44 PM [facility] Creatinine 0.88 0.70 - 1.30 mg/dL LAB CHEMISTRY METHOD 10/26/2024 2:44 PM [facility] eGFR 98 >=60 mL/min/1. 73m2 LAB CHEMISTRY METHOD 10/26/2024 2:44 PM [facility] Comment:Calculation based on the??Chronic Kidney Disease Epidemiology Collaboration (CKD-EPI) equation refit??without adjustment for race. BUN/Creatinine Ratio 11.4 LAB CHEMISTRY METHOD 10/26/2024 2:44 PM [facility] Calcium 9.5 8.5 - 10.5 mg/dL LAB CHEMISTRY METHOD 10/26/2024 2:44 PM [facility] AST (SGOT) 36 10 - 42 unit/L LAB CHEMISTRY METHOD 10/26/2024 2:44 PM [facility] ALT (SGPT) 65(H) 10 - 60 unit/L LAB CHEMISTRY METHOD 10/26/2024 2:44 PM [facility] Alkaline Phosphatase 65 42 - 121 unit/L LAB CHEMISTRY METHOD 10/26/2024 2:44 PM [facility] Total Protein 7.5 6.0 - 8.0 g/dL LAB CHEMISTRY METHOD 10/26/2024 2:44 PM [facility] Albumin 4.2 3.2 - 5.0 g/dL LAB CHEMISTRY METHOD 10/26/2024 2:44 PM [facility] Total Bilirubin 1.2 0.0 - 1.4 mg/dL LAB CHEMISTRY METHOD 10/26/2024 2:44 PM [facility] Blood Blood sample taken from central line / Unknown Existing Catheter / Unknown 10/26/2024 1:04 PM EST 10/26/2024 1:49 PM EST Mary Ramirez MD LAB BLOOD O RDERABLES [facility] [address] [place] [address], documented in this encounter Visit Diagnoses Diagnosis Rectal cancer (CMS/HCC) Malignant neoplasm of rectum Hypothyroidism, unspecified type Essential hypertension, benign Rectosigmoid junction carcinoma (CMS/HCC) Malignant neoplasm of rectosigmoid junction DM (diabetes mellitus), type 2 with peripheral vascular complications (CMS/HCC) Type II or unspecified type diabetes mellitus with peripheral circulatory disorders, not stated as uncontrolled Mixed hyperlipidemia Screening for prostate cancer Special screening for malignant neoplasm of prostate documented in this encounter Additional Health Concerns Assessment Noted Time PHQ-9 Depression Total Score: 3 10/18/19 25 1:39 PM EST documented as of this encounter Care Teams Clinical Laboratory Medical Director Relationship Specialty Start Date End Date Hamzah Adames MD [address] [place] [address] PCP - General Internal Medicine 06/16/22 documented as of this encounter
--- OUTSIDE RECORDS SUMMARY | 2024-11-13 11:11 | XMS_ITS | Clinical Summary ---
Author Organization [address] Address [address] [place] [phone] Phone Care Team Providers Care Materials Mgmt Tech Name Role Phone Hamzah Adames MD Primary Care Provider Allergies No known active allergies Medications Medication Sig Dispensed Refills Start Date End Date Status bisacodyL (Dulcolax, bisacodyl,) 5 mg EC tablet Take 2 tablets (10 mg total) by mouth. right before beginning bowel prep. Follow instructions given by office for timing. 2 Active blood-glucose meter kit 1 each by Other route 1 (one) time each day. 2 Active cholecalciferol (VITAMIN D-3) 50 mcg (2,000 unit) tablet Take 1 tablet (2,000 Units total) by mouth 1 (one) time each day. 4 Active clonazePAM (KlonoPIN) 1 mg tablet Take 1 tablet (1 mg total) by mouth 1 (one) time each day if needed for anxiety. 9 Active FREESTYLE LANCETS MISC 1 EA by Other route 1 (one) time each day. 2 Active blood sugar diagnostic (FREESTYLE LITE STRIPS MISC) 1 EA by Other route 1 (one) time each day. 2 Active neomycin (MYCIFRADIN) 500 mg tablet Take 2 tablets (1,000 mg total) by mouth 4 (four) times a day. . Take at 8 am, noon, 4 pm and 8 pm the day before surgery 3 Active PARoxetine (PAXIL) 10 mg tablet Take 1 tablet (10 mg total) by mouth 1 (one) time each day in the morning. Active folic acid (FOLVITE) 1 mg tablet TAKE 1 TABLET BY MOUTH EVERY DAY 90 tablet 4 Active ferrous sulfate 325 mg (65 mg elemental iron) tablet TAKE 1 TABLET BY MOUTH EVERY DAY 90 tablet 4 Active atorvastatin (LIPITOR) 10 mg tablet Take 1 tablet (10 mg total) by mouth 1 (one) time each day. 90 tablet 1 5 Active amLODIPine (NORVASC) 10 mg tablet Take 1 tablet (10 mg total) by mouth 1 (one) time each day. 90 tablet 1 5 Active ibuprofen (ADVIL,MOTRIN) 400 mg tablet Take 1 tablet (400 mg total) by mouth every 8 (eight) hours if needed for mild pain. TAKE WITH FOOD 90 tablet 5 Active oxyCODONE (ROXICODONE) 5 mg immediate release tabletIndicatio ns:Cancer, metastatic to liver (CMS/HCC) Take 1 tablet (5 mg total) by mouth every 8 (eight) hours if needed for severe pain for up to 90 doses. Max Daily Amount: 15 mg 90 tablet 5 Active metFORMIN (GLUCOPHAGE) 500 mg tablet TAKE 1 TABLET IN THE MORNING WITH BREAKFAST AND 1 TABLET WITH DINNER. 180 tablet 1 5 Active levothyroxine (SYNTHROID, LEVOTHROID) 125 mcg tablet Take 1 tablet (125 mcg total) by mouth 1 (one) time each day. 90 tablet 1 5 Active cholestyramine light (PREVALITE) 4 gram packet Take 1 packet (4 g total) by mouth 2 (two) times a day. 60 packet 5 12/11/19 25 Active atorvastatin (LIPITOR) 10 mg tablet Take 1 tablet (10 mg total) by mouth 1 (one) time each day. 2 10/19/19 25 Discontinued(Reo rder) ibuprofen (ADVIL,MOTRIN) 400 mg tablet Take 1 tablet (400 mg total) by mouth every 8 (eight) hours if needed for mild pain. TAKE WITH FOOD 4 10/22/19 25 Discontinued(Reo rder) levothyroxine (SYNTHROID, LEVOTHROID) 112 mcg tablet Take 1 tablet (112 mcg total) by mouth 1 (one) time each day. Wednesday-Wednesday and 2 tablets every Wednesday 2 10/30/19 25 Discontinued(Dos e adjustment) metFORMIN (GLUCOPHAGE) 500 mg tablet Take 1 tablet (500 mg total) by mouth 1 (one) time each day with breakfast. AND 1 TABLET WITH DINNER 2 11/02/19 25 Discontinued amLODIPine (NORVASC) 10 mg tablet Take 1 tablet (10 mg total) by mouth 1 (one) time each day. 90 tablet 1 4 10/22/19 25 Discontinued(Reo rder) oxyCODONE (ROXICODONE) 5 mg immediate release tabletIndicatio ns:Cancer, metastatic to liver (CMS/HCC) Take 1 tablet (5 mg total) by mouth every 8 (eight) hours if needed for severe pain for up to 90 doses. 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 Overview (07/24/2024): Dx CN 06/12/2022 Dr Bronson referred pt to ONC and Surgery DM (diabetes mellitus), type 2 with peripheral vascular complications 01/29/2022 Overview (07/24/2024): Dx 01/2022 Dyspnea on exertion 03/20/2021 Palpitations 03/20/2021 Attention-deficit hyperactiv ity disorder, predominantly hyperactive type 09/25/2015 Hypothyroidism 07/13/2011 Erectile dysfunction 08/14/2010 Major depressive disorder, recurrent episode, mo derate 02/28/2010 GERD (gastroesophageal reflux disease) 9 Anxiety state 03/25/2006 Essential hypertension, benign 03/25/2006 Pure hypercholesterolemia 03/25/2006 Encounters Date Type Department Care Team Description 10/26/2024 12:59 PM EST - 10/26/2024 11:59 PM EST Hospital Encounter [facility] [address] [phone] Mary Jade MD Rectal cancer (CMS/HCC); Hypothyroidism, unspecified type; Essential hypertension, benign; Rectosigmoid junction carcinoma (CMS/HCC); DM (diabetes mellitus), type 2 with peripheral vascular complications (CMS/HCC); Mixed hyperlipidemia; Screening for prostate cancer Discharge Disposition: Home or Self Care 10/19/2024 10:45 AM EST Office Visit Adult Medicine [address] [phone] Stephanie Martinez PA Hypothyroidism, unspecified type (Primary Dx); Essential hypertension, benign; Rectosigmoid junction carcinoma (CMS/HCC); DM (diabetes mellitus), type 2 with peripheral vascular complications (CMS/HCC); Mixed hyperlipidemia; Screening for prostate cancer 08/18/2024 Telephone [facility] [address] [place] [phone] Mary Jade MD from Last 3 Months Immunizations Name Administration Dates Next Due DTaP (Infanrix) 6wks to less than 7yo 10/04/2011 Influenza trivalent, 0.5mL, preservative free (Fluarix; FluLaval; Fluzone) ages 6mo and older (Afluria) 3 years and older 07/31/2022 Moderna SARS-CoV-2 COVID-19, mRNA, LNP-S, preservative free 06/19/2021,05/22/2021 Td Tetanus diptheria (Tdvax) 7yo and older 10/29 Tdap Tetanus diptheria acell ular pertussis (Boostrix; Adacel) 7yo and older 01/29/2022 Surgical History Surgery Date Site/Laterality Comments ADENOIDECTOMY PROCEDURE: HISTORICAL ADENOIDECTOMY WISDOM TOOTH EXTRACTION PROCEDURE: HISTORICAL WISDOM TEETH EXTRACTION; COMMENT: LEFT SIDE ONLY COLONOSCOPY 06/12/2022 PROCEDURE: HISTORICAL COLONOSCOPY; COMMENT: rectosigmoid colon cancer. biopsy and tattoo OTHER SURGICAL HISTORY 11/05/2022 PROCEDURE: HISTORY OTHER; COMMENT: hepatectomy ADENOIDECTOMY PROCEDURE:ADENOIDECTOMY COLONOSCOPY PROCEDURE:COLONOSCOPY Medical History Medical History Date Comments Subclinical hypothyroidism 06/20/2008 DX:Slaughter bclinical hypothyroidism; COMMENT: Had headaches w/thyroid medication Chronic tension headaches DX:Chr onic tension headaches; COMMENT: Alleviated with Motrin 800mg prn Hypothyroidism 07/13/2011 DX:Hypothyroidis m DM (diabetes mellitus), type 2 with peripheral vascular complications (CMS/HCC) 01/29/2022 DX:DM (diabetes mellitus), t ype 2 with peripheral vascular complications (HCC); COMMENT: Dx 01/2022 Rectosigmoid junction carcin ney (CMS/HCC) 06/16/2022 DX:Rectosigmoid junction car cinoma (HCC); COMMENT: Dx CN 06/12/2022 Dr Bronson referred pt to ONC and Surgery Rectosigmoid cancer (CMS/HCC) DX :Rectosigmoid cancer (HCC) Diabetes mellitus (CMS/HCC) DX:D iabetes mellitus (HCC) Disease of thyroid gland DX:Dise ase of thyroid gland GERD (gastroesophageal reflux disease) DX:GERD (gastroesophageal reflux disease) Hypertension DX:Hypertension Family History Medical History Relation Name Comments Aneurysm Brother 2 Coronary artery disease Father Diabetes Father Hypertension Mother Cancer Sister 3 ovarian Relation Name Status Comments Brother 1 (Age 39) brain anue rysm Brother 2 Father Mother Sister 1 (Age 51) ovarian ca ncer thyroid Sister 2 Alive Sister 3 Social History Tobacco Use Types Packs/Day Years Used Date Smoking Tobacco: Never Smokeless Tobacco: Never Tobacco Cessation:Counseling Given: Not Answered Alcohol Use Standard Drinks/Week Comments Not Currently [...] care for your loved ones. For example, childcare worker or elderly care for an older adult? [...] file Not on file Not on file Obstetrics History Last Filed Vital Signs Vital Sign Reading Time Taken Comments Blood Pressure 132/78 10/19/2024 10:54 AM EST Pulse 100 10/19/2024 10:30 AM EST Temperature 36.5 ??C (97.7 ??F) 10/19/2024 10:[address] Respiratory Rate 18 10/19/2024 10:30 AM EST Oxygen Saturation - - Inhaled Oxygen Concentration - - Weight 103 kg (226 lb) 10/19/2024 10:30 AM EST Height 182.9 cm (6') 10/19/2024 10:30 AM EST Body Mass Index 30.65 10/19/2024 10:30 AM EST Plan of Treatment Upcoming Encounters Date Type Department Care Team (Late st Contact Info) Description 11/27/2024 4:15 PM EST Office Visit General Surgery - [place] [address] [phone] Trell Lopez MD [address] [phone] 12/07/2024 1:00 PM EST Appointment [facility] 271 [facility] 2nd [place] [phone] 01/26/2025 9:30 AM EDT Office Visit [facility] Hematology Oncology [address] [place] [phone] Kev-Mary Rubi MD [address] [place] [phone] Health Maintenance Due Date Last Done Comments Pneumococcal Vaccine: Pediatrics (0 to 5 Years) and At-Risk Patients (6 to 64 Years) (1 of 2 - PCV) 1969 Diabetes: Annual Foot Exam 1973 Diabetes: Annual Retina Eye Exam 1973 Hepatitis A Vaccines (1 of 2 - Risk 2-dose series) 1982 Zoster Vaccines (1 of 2) 1982 COVID-19 Vaccine (3 - Modern a risk series) 07/17/2021 06/19/2021, 05/22/2021 HIV Screening 09/08/2022 Hepatitis B Vaccines (1 of 3 - Risk 3-dose series) 2023 RSV Immunization Patients 60 + Years Old (1 - Risk 60-74 years 1-dose series) 2023 Colorectal Cancer Screening: Colonoscopy 06/12/2023 06/12/2022 Influenza Vaccine (#1) 2024 , 07/31/2022, 10/21/2020 Diabetes: Blood Sugar Contro l Test (HGBA1C) 04/25/2025 10/26/2024, 05/04/2024, 05/04/2024 Diabetes: Annual Urine Albumin-Creatinine Ratio (uACR) 05/04/2025 05/04/2024 Depression Screening 10/18/2025 10/18/2024 Social Influencers of Health Screening 10/18/2025 10/18/2024 Diabetes: Annual GFR (Glomerular Filtration Rate) 10/26/2025 10/26/2024, 05/04/2024, 05/04/2024 Hypertension/CHF/CAD Annual BMP Blood Test 10/26/2025 10/26/2024, 05/04/2024, 05/04/2024 Cholesterol Screening (Lipid Panel) 10/26/2029 10/26/2024, 05/04/2024, 05/04/2024 DTaP,Tdap,and Td Vaccines (4 - Td or Tdap) 01/30/2032 01/29/2022, 10/04/2011, 10/29/2006 Hepatitis C Screening Completed 01/01/2014 HIB Vaccines Aged Out No longer eligi ble based on patient's age to complete this topic HPV Vaccines Aged Out No longer eligi ble based on patient's age to complete this topic IPV Vaccines Aged Out No longer eligi ble based on patient's age to complete this topic MMR Vaccines Aged Out No longer eligi ble based on patient's age to complete this topic Meningococcal ACWY Vaccine Aged Out N o longer eligible based on patient's age to complete this topic RSV Immunization Patients Under 20 months Aged Out No longer eligible b ased on patient's age to complete this topic Varicella Vaccines Aged Out No longer eligible based on patient's age to complete this topic Procedures Procedure Name Priority Date/Time Associated Diagnosis Comments TRIIODOTHYRONINE FREE Routine 10/26/2024 1:04 PM EST [...] 10/26/2024 1:04 PM EST Rectal cancer (CMS/HCC) LIPID PANEL WITH REFLEX TO DIRECT LDL Routine 10/26/2024 1:04 PM EST Hypothyroidism, unspecified type Essential hypertension, benign Rectosigmoid junction carcinoma (CMS/HCC) DM (diabetes mellitus), type 2 with peripheral vascular complications (CMS/HCC) Mixed hyperlipidemia Screening for prostate cancer PROSTATE SPECIFIC ANTIGEN SCREEN Routine 10/26/2024 1:04 [...] 10/26/2024 1:04 PM EST Rectal cancer (CMS/HCC) URINE ALBUMIN CREATININE RATIO Routine 05/04/2024 COLONOSCOPY Routine 06/12/2022 HEPATITIS C SCREENING Routine 01/01/2014 from Last 3 Months or Most Recently Relevant to Health Maintenance Results * Prostate specific antigen screen (10/26/2024 1:04 PM EST) PSA 0.15 0.00 - 4.00 ng/mL LAB CHEMISTRY METHOD 10/26/2024 2:44 PM EST [facility] Blood Blood sample taken from central line / Unknown Existing Catheter / Unknown 10/26/2024 1:04 PM EST 10/26/2024 1:49 PM EST Narrative [facility] - 10/26/2024 2:44 PM EST The Siemens Advia Centaur Chemiluminescent Immunoassay is used. Results obtained with different assay methods or kits cannot be used interchangeably. Results cannot be interpreted as absolute evidence of the presence or absence of malignant disease. Stephanie XIE LAB BLOOD ORDERA BLES [facility] [address] [place] [address], * (ABNORMAL) Thyroid stimulating hormone with reflex to free t4 and free t3 (10/26/2024 1:04 PM EST) TSH 9.63(H) 0.40 - 4.00 mcIU/mL LAB CHEMISTRY METHOD 10/26/2024 2:39 PM EST [facility] Blood Blood sample taken from central line / Unknown Existing Catheter / Unknown 10/26/2024 1:04 PM EST 10/26/2024 1:49 PM EST Stephanie XIE LAB BLOOD ORDERA BLES Performing Organization Address City/[facility]/ZIP Co de Phone Number [facility] [address] [place] [address], [place] [phone] * Free thyroxine with reflex to free triiodothyronine (10/26/2024 1:04 PM EST) Pathologist [facility] Free T4 1.36 0.70 - 1.80 ng/dL LAB CHEMISTRY METHOD 10/26/2024 3:04 PM EST [facility] Blood Blood sample taken from central line / Unknown Existing Catheter / Unknown 10/26/2024 1:04 PM EST 10/26/2024 1:49 PM EST Stephanie XIE LAB BLOOD ORDERA BLES Performing Organization Address [facility]/ZIP Co de Phone Number [facility] [address] [place] [address], [place] [phone] * (ABNORMAL) Lipid panel with reflex to direct LDL (10/26/2024 1:04 PM EST) [facility] Cholesterol 166 0 - 200 mg/dL LAB CHEMISTRY METHOD 10/26/2024 2:44 PM EST [facility] Triglycerides 225(H) 0 - 150 mg/dL LAB CHEMISTRY METHOD 10/26/2024 2:44 PM [facility] HDL 36(L) >=40 mg/dL LAB CHEMISTRY METHOD 10/26/2024 2:44 PM EST [facility] LDL Calculated 85 0 - 100 mg/dL LAB CHEMISTRY METHOD 10/26/2024 2:44 PM EST [facility] VLDL Cholesterol Chema 45 mg/dL LAB CHEMISTRY METHOD 10/26/2024 2:44 PM EST [facility] Non HDL Chol. (LDL+VLDL) 130 <145 mg/dL LAB CHEMISTRY METHOD 10/26/2024 2:44 PM [facility] Chol/HDL Ratio 4.6(H) 0.0 - 4.4 LAB CHEMISTRY METHOD 10/26/2024 2:44 PM [facility] Blood Blood sample taken from central line / Unknown Existing Catheter / Unknown 10/26/2024 1:04 PM EST 10/26/2024 1:49 PM EST Stephanie XIE LAB BLOOD ORDERA BLES [facility] [address] [place] [address], * (ABNORMAL) CBC auto differential (10/26/2024 1:04 PM EST) WBC 5.8 4.8 - 10.8 K/mcL LAB HEMETOLOGY METHOD 10/26/2024 2:02 PM [facility] RBC 4.60 4.50 - 5.50 M/mcL LAB HEMETOLOGY METHOD 10/26/2024 2:02 PM [facility] Hemoglobin 15.4 13.5 - 17.5 g/dL LAB HEMETOLOGY METHOD 10/26/2024 2:02 PM [facility] Hematocrit 43.3 42.0 - 54.0 % LAB HEMETOLOGY METHOD 10/26/2024 2:02 PM [facility] MCV 93.5 79.0 - 98.0 FL LAB HEMETOLOGY METHOD 10/26/2024 2:02 PM [facility] MCH 33.3(H) 27.0 - 32.0 pcg LAB HEMETOLOGY METHOD 10/26/2024 2:02 PM [facility] MCHC 35.6 32.0 - 37.0 g/dL LAB HEMETOLOGY METHOD 10/26/2024 2:02 PM [facility] RDW 12.8 11.0 - 15.0 % LAB HEMETOLOGY METHOD 10/26/2024 2:02 PM [facility] Platelets 232 130 - 400 K/mcL LAB HEMETOLOGY METHOD 10/26/2024 2:02 PM [facility] MPV 10.9 7.0 - 11.0 FL LAB HEMETOLOGY METHOD 10/26/2024 2:02 PM [facility] NRBC 0.0 <1.0 % LAB HEMETOLOGY METHOD 10/26/2024 2:02 PM [facility] NRBC Absolute 0.00 <0.10 K/mcL LAB HEMETOLOGY METHOD 10/26/2024 2:02 PM [facility] Neutrophils Relative 63.1 % LAB HEMETOLOGY METHOD 10/26/2024 2:02 PM [facility] Lymphocytes Relative 22.6 % LAB HEMETOLOGY METHOD 10/26/2024 2:02 PM [facility] Monocytes Relative 8.0 % LAB HEMETOLOGY METHOD 10/26/2024 2:02 PM [facility] Eosinophils Relative 4.5 % LAB HEMETOLOGY METHOD 10/26/2024 2:02 PM [facility] Basophils Relative 0.9 % LAB HEMETOLOGY METHOD 10/26/2024 2:02 PM [facility] Immature Granulocytes Relative 0.9 % LAB HEMETOLOGY METHOD 10/26/2024 2:02 PM [facility] Neutrophils Absolute 3.64 1.50 - 7.00 K/mcL LAB HEMETOLOGY METHOD 10/26/2024 2:02 PM [facility] Lymphocytes Absolute 1.30 1.00 - 5.00 K/mcL LAB HEMETOLOGY METHOD 10/26/2024 2:02 PM [facility] Monocytes Absolute 0.46 0.20 - 1.00 K/mcL LAB HEMETOLOGY METHOD 10/26/2024 2:02 PM EST [facility] Eosinophils Absolute 0.26 0.00 - 0.50 K/[facility] LAB HEMETOLOGY METHOD 10/26/2024 2:02 PM [facility] Basophils Absolute 0.05 0.00 - 0.20 K/[facility] LAB HEMETOLOGY METHOD 10/26/2024 2:02 PM EST [facility] Immature Granulocytes Absolute 0.05(H) 0.00 - 0.03 K/[facility] HEMETOLOGY METHOD 10/26/2024 2:02 PM [facility] Blood Blood sample taken from central line / Unknown Existing Catheter / Unknown 10/26/2024 1:04 PM EST 10/26/2024 1:49 PM EST Mary Ramirez MD LAB BLOOD O RDERABLES Performing Organization Address City/[facility]/ZIP Co de Phone Number [facility] [address] [place] [address], [place] [phone] * Triiodothyronine free (10/26/2024 1:04 PM EST) Pathologist [facility] T3, Free 300 230 - 420 pcg/dL LAB CHEMISTRY METHOD 10/26/2024 3:43 PM EST [facility] Blood Blood sample taken from central line / Unknown Existing Catheter / Unknown 10/26/2024 1:04 PM EST 10/26/2024 1:49 PM EST Stephanie XIE LAB BLOOD ORDERA BLES Performing Organization Address [facility]/ZIP Co de Phone Number [facility] [address] [place] [address], [place] [phone] * Magnesium (10/26/2024 1:04 PM EST) Magnesium 2.0 1.9 - 2.6 mg/dL LAB CHEMISTRY METHOD 10/26/2024 2:31 PM EST [facility] Blood Blood sample taken from central line / Unknown Existing Catheter / Unknown 10/26/2024 1:04 PM EST 10/26/2024 1:49 PM EST Stephanie XIE LAB BLOOD ORDERA BLES Performing Organization Address City/[facility]/ZIP Co de Phone Number [facility] [address] [place] [address], [place] [phone] * Hemoglobin A1c (10/26/2024 1:04 PM EST) Hemoglobin A1C 5.9 <6.5 % LAB CHEMISTRY METHOD 10/26/2024 8:52 PM EST [facility] Mean Bld Glu Estim. 123 mg/dL LAB CHEMISTRY METHOD 10/26/2024 8:52 PM EST [facility] Blood Blood sample taken from central line / Unknown Existing Catheter / Unknown 10/26/2024 1:04 PM EST 10/26/2024 1:49 PM EST Stephanie XIE LAB BLOOD ORDERA BLES Performing Organization Address [facility]/ZIP Co de Phone Number [facility] [address] [place] [address], [place] [phone] * CEA (10/26/2024 1:04 PM EST) CEA <2.0 0.0 - 5.0 ng/mL LAB CHEMISTRY METHOD 10/26/2024 2:45 PM EST [facility] Blood Blood sample taken from central line / Unknown Existing Catheter / Unknown 10/26/2024 1:04 PM EST 10/26/2024 1:49 PM EST Narrative [facility] - 10/26/2024 2:45 PM EST The Siemens Advia Centaur Chemiluminescent Immunoassay is used. Results obtained with different assay methods or kits cannot be used interchangeably. Results cannot be interpreted as absolute evidence of the presence or absence of malignant disease. Mary Ramirez MD LAB BLOOD O RDERABLES [facility] [address] [place] [address], * (ABNORMAL) Comprehensive metabolic panel (10/26/2024 1:04 PM EST) Pathologist [facility] Sodium 136 133 - 145 mmol/L LAB CHEMISTRY METHOD 10/26/2024 2:44 PM EST [facility] Potassium 3.6 3.5 - 5.5 mmol/L LAB CHEMISTRY METHOD 10/26/2024 2:44 PM [facility] Chloride 103 96 - 110 mmol/L LAB CHEMISTRY METHOD 10/26/2024 2:44 PM [facility] CO2 26 21 - 32 mmol/L LAB CHEMISTRY METHOD 10/26/2024 2:44 PM [facility] Anion Gap 7 3 - 11 LAB CHEMISTRY METHOD 10/26/2024 2:44 PM [facility] Glucose 108(H) 70 - 100 mg/dL LAB CHEMISTRY METHOD 10/26/2024 2:44 PM [facility] BUN 10 5 - 25 mg/dL LAB CHEMISTRY METHOD 10/26/2024 2:44 PM [facility] Creatinine 0.88 0.70 - 1.30 mg/dL LAB CHEMISTRY METHOD 10/26/2024 2:44 PM [facility] eGFR 98 >=60 mL/min/1. 73m2 LAB CHEMISTRY METHOD 10/26/2024 2:44 PM [facility] Comment:Calculation based on the??Chronic Kidney Disease Epidemiology Collaboration (CKD-EPI) equation refit??without adjustment for race. BUN/Creatinine Ratio 11.4 LAB CHEMISTRY METHOD 10/26/2024 2:44 PM EST [facility] Calcium 9.5 8.5 - 10.5 mg/dL LAB CHEMISTRY METHOD 10/26/2024 2:44 PM [facility] AST (SGOT) 36 10 - 42 unit/L LAB CHEMISTRY METHOD 10/26/2024 2:44 PM [facility] ALT (SGPT) 65(H) 10 - 60 unit/L LAB CHEMISTRY METHOD 10/26/2024 2:44 PM [facility] Alkaline Phosphatase 65 42 - 121 unit/L LAB CHEMISTRY METHOD 10/26/2024 2:44 PM [facility] Total Protein 7.5 6.0 - 8.0 g/dL LAB CHEMISTRY METHOD 10/26/2024 2:44 PM [facility] Albumin 4.2 3.2 - 5.0 g/dL LAB CHEMISTRY METHOD 10/26/2024 2:44 PM [facility] Total Bilirubin 1.2 0.0 - 1.4 mg/dL LAB CHEMISTRY METHOD 10/26/2024 2:44 PM [facility] Blood Blood sample taken from central line / Unknown Existing Catheter / Unknown 10/26/2024 1:04 PM EST 10/26/2024 1:49 PM EST Subramony James SILVA LAB BLOOD O RDERABLES [facility] [address] [place] [address], * Urine Albumin Creatinine Ratio (05/04/2024) Pathologist [facility] Urine Albumin Creatinine Ratio abstracted Historical Provider MD JAYCE THOMAS E * Colonoscopy (06/12/2022) Pathologist [facility] Colonoscopy no interpretation , abstracted Anatomical Region Laterality Modality Other Historical Provider MD JAYCE THOMAS * Hepatitis C Screening (01/01/2014) Pathologist [facility] Hepatitis C Screening abstracted Historical Provider MD JAYCE Lester from Last 3 Months or Most Recently Relevant to Health Maintenance Care Teams Materials Mgmt Tech Relationship Specialty Start Date End Date Hamzah Adames MD [address], [place] PCP - General Internal Medicine 06/16/22
--- OUTSIDE RECORDS SUMMARY | 2024-11-13 11:11 | XMS_ITS ---
Author Organization [facility] Address [address] [place] [address] Care Team Providers Care Calender Operator Helper Name Role Phone Hamzah Adames MD Primary Care Provider [phone] Active Problems Problem Noted Date Diagnosed Date Drug-induced peripheral neuropathy 04/08/2023 Diarrhea due to drug 01/25/2023 Chemotherapy induced neutropenia 09/01/2022 Essential hypertension 09/01/2022 Change in voice 07/17/2022 Weight loss 07/17/2022 Rectal cancer 06/30/2022 Malignant neoplasm metastatic to liver 2 Iron deficiency anemia due to chronic blood loss 06/30/2022 Type 2 diabetes mellitus wit hout complication, without long-term current use of insulin 06/30/2022 Anxiety 06/30/2022 Current Oncology Plans No current plan information found. Past Plans ONCOLOGY TREATMENT Plan Name Start Date Discontinue Date Treatment Medications Discontinue Reason Plan Provider Cycles SFC BCN OP FOLFOX 6 (MODIFIED) - OXALIPLATIN + LEUCOVORIN + FLUOROURACIL (5 HRS) 07/06/2012/14/2023 albuterol (PROVENTIL)dexamethas one (DECADRON)dextrose 5 %diphenhydrAMINE (BENADRYL)EPINEPHrine famotidine (PF) (PEPCID)fluorouracil (5 FU) 46 Hr Chemo infusion- Home Usefluorouracil (ADRUCIL)hydrocortiso ne (SOLU-CORTEF) IVleucovorin (WELLCOVORIN) infusionmeperidine (DEMEROL) 25 MG/MLoxaliplatin (ELOXATIN) chemo infusionpalonosetron (ALOXI)pegfilgrastim (biosimilar orderable)Pegfilgrast im (NEULASTA)pegfilgrast im-jmdb (FULPHILA)potassium chloride ERprochlorperazine (COMPAZINE)Saline Flush 0.9 %sodium chloride (NS) 0.9 %sodium chloride 0.9% bolus (NS) Therapy Complete Mary Bynum MD 12 of 12 cycles started Radiation Treatments * No radiation treatments are documented for this patient in [facility]. Treatments may have been administered in another system.
--- OUTSIDE RECORDS SUMMARY | 2024-11-13 11:11 | XMS_ITS | Clinical Summary ---
Author Organization [facility] Address [address] [place] [address] Care Team Providers Care Group Marketing Vp Name Role Phone Hamzah Adames MD Primary Care Provider [phone] Allergies No known active allergies Medications Medication Sig Dispensed Refills Start Date End Date Status atorvastatin (LIPITOR) tablet 10 mg Take 1 tablet (10 mg total) by mouth daily. 0 04/16/2022 Active clonazePAM (KlonoPIN) 1 MG tablet TAKE ONE TABLET BY MOUTH TWICE A DAY NEEDED ANXIETY 0 06/13/2022 Active FREESTYLE LITE test strip USED TO CHECK GLUCOSE LEVELS ONCE DAILY 0 06/18/2022 Active levothyroxine (SYNTHROID) tablet 112 mcg TAKE 1 TABLET BY MOUTH DAILY ON AN EMPTY STOMACH & 30 MIN BEFORE ANY OTHER MEDS 0 04/16/2022 Active metFORMIN (GLUCOPHAGE) tablet 500 mg TAKE 1 TABLET IN THE MORNING WITH BREAKFAST AND 1 TABLET WITH DINNER. 0 05/17/2022 Active PARoxetine (PAXIL) 10 MG tablet Take 1 tablet (10 mg total) by mouth. TAKING 10 MG DAILY- weaning off 0 12/11/2020 Active omeprazole (PriLOSEC) 20 MG capsule Take 1 capsule (20 mg total) by mouth daily. 0 Active amLODIPine (NORVASC) tablet 10 mg TAKE 1 TABLET BY MOUTH EVERY DAY 90 tablet 1 02/24/2024 Active oxyCODONE (ROXICODONE) 5 MG immediate release tablet Take 1 tablet (5 mg total) by mouth every 8 (eight) hours as needed for pain. 90 tablet 0 07/27/2024 Active Active Problems Problem Noted Date Diagnosed Date Drug-induced peripheral neuropathy 04/08/2023 Diarrhea due to drug 01/25/2023 Chemotherapy induced neutropenia 09/01/2022 Essential hypertension 09/01/2022 Change in voice 07/17/2022 Weight loss 07/17/2022 Rectal cancer 06/30/2022 Malignant neoplasm metastatic to liver Iron deficiency anemia due to chronic blood loss 06/30/2022 Type 2 diabetes mellitus wit hout complication, without long-term current use of insulin 06/30/2022 Anxiety 06/30/2022 Family History Medical History Relation Name Comments Aneurysm Brother Diabetes Father Hypertension Mother Cancer Sister ovarian Relation Name Status Comments Brother Father Mother Sister Social History Tobacco Use Types Packs/Day Years Used Date Smoking Tobacco: Never Smokeless Tobacco: Never Alcohol Use Standard Drinks/Week Comments Not Currently 0 (1 standard drink = 0.6 oz pur e alcohol) Sex and Gender Information Value Date Recorded Sex Assigned at Male 07/01/2022 9:34 AM EDT Gender Identity Not on file Sexual Orientation Not on file Job Start Date Occupation Industry Not on file Not on file Not on file Last Filed Vital Signs Vital Sign Reading Time Taken Comments Blood Pressure 130/86 07/27/2024 9:30 AM EDT Pulse 123 07/27/2024 9:30 AM EDT Temperature 36.6 ??C (97.8 ??F) 07/27/2024 9:30 AM ED T Respiratory Rate 18 07/01/2023 12:30 PM EDT Oxygen Saturation 98% 07/27/2024 9:30 AM EDT Inhaled Oxygen Concentration - - Weight 99.4 kg (219 lb 3.2 oz) 07/27/2024 9:30 A M EDT Height 182.9 cm (6') 07/27/2024 9:30 AM EDT Body Mass Index 29.73 07/27/2024 9:30 AM EDT Plan of Treatment Health Maintenance Due Date Last Done Comments Hepatitis C Screening 1965 COVID-19 Vaccine (#1) 1968 Pneumococcal Vaccine (1 of 2 - PCV) 1969 Depression Screening 1975 BMI Counseling 1981 Preventative Health Evaluation 1981 Shingrix-Zoster Vaccine (1 o f 2) 1982 Colon Cancer Screening (Colonoscopy) 2008 RSV Adult > 60+ Yrs or (1 - Risk 60-74 years 1-dose series) 2023 Influenza Vaccine (#1) 2024 10/21/2020 DTap / Tdap / Td (3 - Td or Tdap) 01/30/2032 01/29/2022, 10/04/2011, 10/29/2006 Hepatitis B Vaccines Aged Out No long er eligible based on patient's age to complete this topic RSV Ped < 20 months Aged Out No longe r eligible based on patient's age to complete this topic Care Teams Group Marketing Vp Relationship Specialty Start Date End Date Hamzah Adames MD [address] [place] [address] [phone] PCP - General Hospitalist Medicine 06/23/22
--- OUTSIDE RECORDS SUMMARY | 2024-11-13 11:11 | XMS_ITS | Encounter Summary ---
Author Organization [facility] Address [address] [place] [address] Care Team Providers Care Counter Clerk Name Role Phone Hamzah Adames MD Primary Care Provider [phone] Encounter Details Date Type Department Care Team Description 07/07/2022 Social Work [facility] Oncology Services [address] [place] [id number] [facility] [place] Social History Tobacco Use Types Packs/Day Years [...] file Not on file Not on file COVID-19 Exposure Response Date Recorded In the last 10 days, have yo u been in contact with someone who was confirmed or suspected to have Coronavirus/COVID-19? No / Unsure 07/09/2022 12:48 PM EDT documented as of this encounter Plan of Treatment Not on file documented as of this encounter Visit Diagnoses Not on filedocumented in this encounter Care Teams Counter Clerk Relationship Specialty Start Date End Date Hamzah Adamse MD [address] [place] [id number] PCP - General Hospitalist Medicine 06/23/22 documented as of this encounter
--- OUTSIDE RECORDS SUMMARY | 2024-11-13 11:11 | XMS_ITS | Encounter Summary ---
Author Organization [facility] [place] [address] Care Team Providers Care Blanking Press Operator Name Role Phone Hamzah Adames MD Primary Care Provider [phone]- [phone] Reason for Visit * Reason Comments Follow-up Med review Encounter Details Date Type Department Care Team (Late st Contact Info) Description 10/19/2024 10:45 AM EST Office Visit Adult Medicine [address] [phone] Ceasar Martinez PA [address] [place] [id number] Hypothyroidism, unspecified type (Primary Dx); Essential hypertension, benign; Rectosigmoid junction carcinoma (CMS/HCC); DM (diabetes mellitus), type 2 with peripheral vascular complications (CMS/HCC); Mixed hyperlipidemia; Screening for prostate cancer Social History Tobacco Use Types Packs/Day Years [...] care for your loved ones. For example, early childhood educator aide or elderly care for an older adult? [...] on file documented as of this encounter Last Filed Vital Signs Vital Sign Reading [...] Mass Index 30.65 10/19/2024 10:30 AM EST documented in this encounter Ordered Prescriptions Prescription Sig Dispensed Refills Start Date End Da te levothyroxine (SYNTHROID, LEVOTHROID) 125 mcg tablet Take 1 tablet (125 mcg total) by mouth 1 (one) time each day. 90 tablet 1 10/30/2024 ibuprofen (ADVIL,MOTRIN) 400 mg tablet Take 1 tablet (400 mg total) by mouth every 8 (eight) hours if needed for mild pain. TAKE WITH FOOD 90 tablet 10/22/2024 amLODIPine (NORVASC) 10 mg tablet Take 1 tablet (10 mg total) by mouth 1 (one) time each day. 90 tablet 1 10/22/2024 atorvastatin (LIPITOR) 10 mg tablet Take 1 tablet (10 mg total) by mouth 1 (one) time each day. 90 tablet 1 10/19/2024 documented in this encounter Progress Notes * ROJAS Barnes - 10/19/2024 10:45 AM ESTAddended by: CEASAR MARTINEZ on: 10/30/2024 05:38 PM Modules accepted: Orders * ROJAS Barnes - 10/19/2024 10:45 AM EST CHIEF COMPLAINT: Follow-up (Med review ) IDENTIFIER: Chinedu Champion is a 59 y.o. old male. HPI: Chinedu Champion is a 59 y.o. old male with past medical history of hypertension, hyperlipidemia, DM2, hypothyroidism, anxiety/depression, ADD, rectal cancer with liver mets, s/p partial hepatectomy,status post chemo and radiation therapy, recent low anterior resection of rectum, status post ileostomy, recent ileostomy reversal presents today for medication review. Blood pressure in the office today is stable. Blood sugars have been under control. He is compliant with medications. Psychiatrist- Philomena Haney, [facility] Oncologist-Kev El ROS: GENERAL: No malaise, significant weight loss or fever HEENT: No changes in hearing or vision, nose bleeds or other nasal problems NECK: No lumps, goiter, pain or significant neck swelling RESPIRATORY: No cough, wheezing or shortness of breath CARDIOVASCULAR: No chest pain, leg swelling or palpitations GI: No abdominal pain, hematochezia, melena : No dysuria, oliguria, polyuria, hematuria, flank pain MUSCULOSKELETAL: No joint pain or swelling, back pain, or muscle pain. SKIN: No lesions, rash or itching NEURO: No persistent headache, syncope, seizures, weakness or numbness PAST MEDICAL HISTORY: Patient Active Problem List Diagnosis Date Noted Incontinence of feces 03/20/2024 Mixed hyperlipidemia 03/16/2023 Cancer, metastatic to liver (CMS/HCC) 06/30/2022 Rectosigmoid junction carcinoma (CMS/HCC) 06/16/2022 DM (diabetes mellitus), type 2 with peripheral vascular complications (CMS/HCC) 01/29/2022 Dyspnea on exertion 03/20/2021 Palpitations 03/20/2021 Attention-deficit hyperactivity disorder, predominantly hyperactive type 09/25/2015 Hypothyroidism 07/13/2011 Erectile dysfunction 08/14/2010 Major depressive disorder, recurrent episode, moderate (CMS/HCC) 02/28/2010 GERD (gastroesophageal reflux disease) 05/30/2009 Anxiety state 03/25/2006 Essential hypertension, benign 03/25/2006 Pure hypercholesterolemia 03/25/2006 Past Surgical History: Procedure Laterality Date ADENOIDECTOMY PROCEDURE: HISTORICAL ADENOIDECTOMY ADENOIDECTOMY PROCEDURE:ADENOIDECTOMY COLONOSCOPY 06/12/2022 PROCEDURE: HISTORICAL COLONOSCOPY; COMMENT: rectosigmoid colon cancer. biopsy and tattoo COLONOSCOPY PROCEDURE:COLONOSCOPY OTHER SURGICAL HISTORY 11/05/2022 PROCEDURE: HISTORY OTHER; COMMENT: hepatectomy WISDOM TOOTH EXTRACTION PROCEDURE: HISTORICAL WISDOM TEETH EXTRACTION; COMMENT: LEFT SIDE ONLY SOCIAL HISTORY: Social History Tobacco Use Smoking status: Never Smokeless tobacco: Never Substance Use Topics Alcohol use: Not Currently FAMILY HISTORY: Family History Problem Relation Name Age of Onset Diabetes Father Coronary artery disease Father Hypertension Mother Cancer Sister ovarian Aneurysm Brother Family Status Relation Name Status Father (Not Specified) Mother (Not Specified) Sister at age 51 ovarian cancer thyroid Sister Alive Brother at age 39 brain anuerysm Sister Brother No partnership data on file MEDICATIONS DISCONTINUED/REORDERED: Medications Discontinued During This Encounter Medication Reason atorvastatin (LIPITOR) 10 mg tablet Reorder amLODIPine (NORVASC) 10 mg tablet Reorder ibuprofen (ADVIL,MOTRIN) 400 mg tablet Reorder ACTIVE MEDICATIONS: Outpatient Medications Marked as Taking for the 10/19/24 encounter (Office Visit) with ROJAS Barnes Medication Sig Dispense Refill amLODIPine (NORVASC) 10 mg tablet Take 1 tablet (10 mg total) by mouth 1 (one) time each day. 90 tablet 1 atorvastatin (LIPITOR) 10 mg tablet Take 1 tablet (10 mg total) by mouth 1 (one) time each day. 90 tablet 1 bisacodyL (Dulcolax, bisacodyl,) 5 mg EC tablet Take 2 tablets (10 mg total) by mouth. right beforebeginning bowel prep. Follow instructions given by office for timing. blood sugar diagnostic (FREESTYLE LITE STRIPS MISC) 1 EA by Other route 1 (one) time each day. blood-glucose meter kit 1 each by Other route 1 (one) time each day. cholecalciferol (VITAMIN D-3) 50 mcg (2,000 unit) tablet Take 1 tablet (2,000 Units total) by mouth1 (one) time each day. clonazePAM (KlonoPIN) 1 mg tablet Take 1 tablet (1 mg total) by mouth 1 (one) time each day if needed for anxiety. ferrous sulfate 325 mg (65 mg elemental iron) tablet TAKE 1 TABLET BY MOUTH EVERY DAY 90 tablet 0 folic acid (FOLVITE) 1 mg tablet TAKE 1 TABLET BY MOUTH EVERY DAY 90 tablet 0 FREESTYLE LANCETS MISC 1 EA by Other route 1 (one) time each day. ibuprofen (ADVIL,MOTRIN) 400 mg tablet Take 1 tablet (400 mg total) by mouth every 8 (eight) hours if needed for mild pain. TAKE WITH FOOD 90 tablet 0 levothyroxine (SYNTHROID, LEVOTHROID) 112 mcg tablet Take 1 tablet (112 mcg total) by mouth 1 (one)time each day. Wednesday-Wednesday and 2 tablets every Wednesday metFORMIN (GLUCOPHAGE) 500 mg tablet Take 1 tablet (500 mg total) by mouth 1 (one) time each day with breakfast. AND 1 TABLET WITH DINNER neomycin (MYCIFRADIN) 500 mg tablet Take 2 tablets (1,000 mg total) by mouth 4 (four) times a day. . Take at 8 am, noon, 4 pm and 8 pm the day before surgery oxyCODONE (ROXICODONE) 5 mg immediate release tablet Take 1 tablet (5 mg total) by mouth every 8 (eight) hours if needed for severe pain for up to 90 doses. Max Daily Amount: 15 mg 90 tablet 0 PARoxetine (PAXIL) 10 mg tablet Take 1 tablet (10 mg total) by mouth 1 (one) time each day in the morning. [DISCONTINUED] amLODIPine (NORVASC) 10 mg tablet Take 1 tablet (10 mg total) by mouth 1 (one) time each day. 90 tablet 1 [DISCONTINUED] atorvastatin (LIPITOR) 10 mg tablet Take 1 tablet (10 mg total) by mouth 1 (one) time each day. [DISCONTINUED] ibuprofen (ADVIL,MOTRIN) 400 mg tablet Take 1 tablet (400 mg total) by mouth every 8(eight) hours if needed for mild pain. TAKE WITH FOOD ALLERGIES: No Known Allergies PHYSICAL EXAM: Vitals: 10/19/24 1054 BP: 132/78 Pulse: Resp: Temp: APPEARANCE: Alert and in no acute distress EYES: PERRLA, conjunctiva and sclera normal. EARS: External ears normal. Canals clear. TMs normal. NOSE/SINUS: Nares normal. Septum midline. Mucosa normal. No drainage or sinus tenderness. MOUTH/THROAT: no erythema or exudates NECK: Neck supple, no adenopathy, thyroid symmetric and of normal size HEART: RRR with normal S1 and S2, no murmurs, no gallops CHEST: non-tender to palpation, no crepitation LUNG: clear to auscultation, no wheezing, rales, or rhonchi. Able to talk in full complete sentences ABDOMEN: Bowel sounds normoactive, soft, non-tender, without organomegaly or palpable masses. BACK: No pain to palpation with good flexion and extension. Spine midline, no deviations or step-offs EXTREMITIES: Extremities warm and well perfused without clubbing, cyanosis, or edema MUSCULOSKELETAL: Strength 5/5 to bilateral upper/lower extremities NEURO: Awake, alert and oriented x 3. No focal neurological deficits SKIN: Skin color, texture, turgor normal. No rashes or lesions. LABS: Results for orders placed or performed in visit on 07/24/24 Hepatitis C Screening Collection Time: 01/01/14 12:00 AM Result Value Ref Range Hepatitis C Screening abstracted Colonoscopy Collection Time: 06/12/22 12:00 AM Result Value Ref Range Colonoscopy no interpretation, abstracted Lipid panel Collection Time: 05/04/24 12:00 AM Result Value Ref Range LDL/HDL Ratio 3 0 - 4 Triglycerides 129 0 - 150 mg/dL Cholesterol 131 0 - 200 mg/dL HDL 40 40 mg/dL LDL Cholesterol 66 0 - 100 mg/dL Hemoglobin A1c Collection Time: 05/04/24 12:00 AM Result Value Ref Range Hemoglobin A1C 5.5 6.5 % Annual BMP Blood Test Collection Time: 05/04/24 12:00 AM Result Value Ref Range Annual BMP Blood Test abstracted Urine Albumin Creatinine Ratio Collection Time: 05/04/24 12:00 AM Result Value Ref Range Urine Albumin Creatinine Ratio abstracted IMPRESSION: 1. Hypothyroidism, unspecified type 2. Essential hypertension, benign 3. Rectosigmoid junction carcinoma (CMS/HCC) 4. DM (diabetes mellitus), type 2 with peripheral vascular complications (CMS/HCC) 5. Mixed hyperlipidemia PLAN: Repeat TSH. For now he continues on levothyroxine 112 mcg, take 1 tablet Wednesday through Wednesday and 2 tablets every Wednesday. His blood pressure today stable. He will continue on Norvasc 10 mg daily. Patient had rectal cancer with liver mets. s/p low anterior resection of rectum with diverting ileostomy with recent ileostomy reversal and partial hepatectomy. He received chemotherapy and radiationtherapy. He follows with oncologist Dr. Rubi and general surgeon Dr. Lopez. Last A1C 5.5. I will recheck A1c levels today. For now he will continue on metformin XL 500 mg twice daily. He is taking Neurontin 100 mg twice daily for peripheral neuropathy. Last LDL 66. He will continue with dietary changes. Routine exercise as tolerated. Follow up in 5 months for routine physical exam, medication review with pcp. He will complete labs prior to next follow up visit. All questions and concerns were addressed. Chinedu Champion verbalizes understanding and agrees withthis treatment plan. Patient was reminded to call or return to the office if any new or existing problems arise. No orders of the defined types were placed in this encounter. None ROJAS Barnes on 10/22/2024 at 9:22 PM EST Today's documentation was made using voice recognition software.This note may contain grammatical errors secondary to this software. documented in this encounter Plan of Treatment Upcoming Encounters Date Type Department Care Team (Late st Contact Info) Description 11/27/2024 4:15 PM EST Office Visit General Surgery [facility] [address] [phone] Trell Lopez MD [address] [address] 12/07/2024 1:00 PM EST Appointment [facility] Infusion Center [address] [facility] [address] [place] [address] 01/26/2025 9:30 AM EDT Office Visit [facility] Hematology Oncology [address] [place] [phone] Mary Ramirez MD [address] [place] [address] Scheduled Orders Name Type Priority Associated Diagnoses Orde r Schedule Thyroid stimulating hormone with reflex to free t4 and free t3 Lab Routine Hypothyroidism, unspecified type 1 Occurrences starting 10/30/2024 until 10/30/2025 documented as of this encounter Results * (ABNORMAL) Lipid panel with reflex to direct LDL (10/26/2024 1:04 PM EST) Cholesterol 166 0 - 200 mg/dL LAB CHEMISTRY METHOD 10/26/2024 2:44 PM EST [facility] ([facility] Triglycerides 225(H) 0 - 150 mg/dL LAB CHEMISTRY METHOD 10/26/2024 2:44 PM EST [facility] HDL 36(L) >=40 mg/dL LAB CHEMISTRY METHOD 10/26/2024 2:44 PM EST [facility] LDL Calculated 85 0 - 100 mg/dL LAB CHEMISTRY METHOD 10/26/2024 2:44 PM EST [facility] VLDL Cholesterol Chema 45 mg/dL LAB CHEMISTRY METHOD 10/26/2024 2:44 PM EST [facility] Non HDL Chol. (LDL+VLDL) 130 <145 mg/dL LAB CHEMISTRY METHOD 10/26/2024 2:44 PM EST [facility] Chol/HDL Ratio 4.6(H) 0.0 - 4.4 LAB CHEMISTRY METHOD 10/26/2024 2:44 PM EST [facility] Blood Blood sample taken from central line / Unknown Existing Catheter / Unknown 10/26/2024 1:04 PM EST 10/26/2024 1:49 PM EST Ceasar XIE LAB BLOOD ORDERA BLES [facility] [address] [place] [address], * Prostate specific antigen screen (10/26/2024 1:04 PM EST) PSA 0.15 0.00 - 4.00 ng/mL LAB CHEMISTRY METHOD 10/26/2024 2:44 PM EST [facility] Blood Blood sample taken from central line / Unknown Existing Catheter / Unknown 10/26/2024 1:04 PM EST 10/26/2024 1:49 PM EST Narrative [facility] - 10/26/2024 2:44 PM EST The Siemens Advia Centaur Chemiluminescent Immunoassay is used. Results obtained with different assay methods or kits cannot be used interchangeably. Results cannot be interpreted as absolute evidence of the presence or absence of malignant disease. Ceasar Risa Hudson XIE LAB BLOOD ORDERA BLES Performing Organization Address [facility] Co de Phone Number [facility] [address] [place] [address], [place] [phone] * (ABNORMAL) Thyroid stimulating hormone with reflex to free t4 and free t3 (10/26/2024 1:04 PM EST) [facility] TSH 9.63(H) 0.40 - 4.00 mcIU/mL LAB CHEMISTRY METHOD 10/26/2024 2:39 PM EST [facility] Blood Blood sample taken from central line / Unknown Existing Catheter / Unknown 10/26/2024 1:04 PM EST 10/26/2024 1:49 PM EST Ceasarcarlton KingstonRisanegrita XIE LAB BLOOD ORDERA BLES Performing Organization Address [facility] Co de Phone Number [facility] [address] [place] [address], [place] [phone] * Magnesium (10/26/2024 1:04 PM EST) [facility] Magnesium 2.0 1.9 - 2.6 mg/dL LAB CHEMISTRY METHOD 10/26/2024 2:31 PM EST [facility] Blood Blood sample taken from central line / Unknown Existing Catheter / Unknown 10/26/2024 1:04 PM EST 10/26/2024 1:49 PM EST Ceasar Risanegrita XIE LAB BLOOD ORDERA BLES Performing Organization Address [facility]/ZIP Co de Phone Number [facility] [address] [place] [address], [place] [phone] * Hemoglobin A1c (10/26/2024 1:04 PM EST) [facility] Hemoglobin A1C 5.9 <6.5 % LAB CHEMISTRY METHOD 10/26/2024 8:52 PM EST [facility] Mean Bld Glu Estim. 123 mg/dL LAB CHEMISTRY METHOD 10/26/2024 8:52 PM EST [facility] Blood Blood sample taken from central line / Unknown Existing Catheter / Unknown 10/26/2024 1:04 PM EST 10/26/2024 1:49 PM EST Ceasar XIE LAB BLOOD ORDERA BLES [facility] [address] [place] [address], documented in this encounter Visit Diagnoses Diagnosis Hypothyroidism, unspecified type- Primary Essential hypertension, benign Rectosigmoid junction carcinoma (CMS/HCC) Malignant neoplasm of rectosigmoid junction DM (diabetes mellitus), type 2 with peripheral vascular complications (CMS/HCC) Type II or unspecified type diabetes mellitus with peripheral circulatory disorders, not stated as uncontrolled Mixed hyperlipidemia Screening for prostate cancer Special screening for malignant neoplasm of prostate documented in this encounter Discontinued Medications Medication Sig Discontinue Reason Start Date End Da te atorvastatin (LIPITOR) 10 mg tablet Take 1 tablet (10 mg total) by mouth 1 (one) time each day. Reorder 04/16/2022 10/19/2024 amLODIPine (NORVASC) 10 mg tablet Take 1 tablet (10 mg total) by mouth 1 (one) time each day. Reorder 09/08/2024 10/22/2024 ibuprofen (ADVIL,MOTRIN) 400 mg tablet Take 1 tablet (400 mg total) by mouth every 8 (eight) hours if needed for mild pain. TAKE WITH FOOD Reorder 05/01/2024 10/22/2024 levothyroxine (SYNTHROID, LEVOTHROID) 112 mcg tablet Take 1 tablet (112 mcg total) by mouth 1 (one) time each day. Wednesday-Wednesday and 2 tablets every Wednesday Dose adjustment 04/16/2022 10/30/2024 documented as of this encounter Orders Lab Orders Without Results Count Last Ordered D ate First Ordered Date CBC AND DIFFERENTIAL 1 10/22/2024 COMPREHENSIVE METABOLIC PANEL 1 10/22/2024 documented in this encounter Additional Health Concerns Assessment Noted Time PHQ-9 Depression Total Score: 3 10/18/19 25 1:39 PM EST documented as of this encounter Care Teams Blanking Press Operator Relationship Specialty Start Date End Date Hamzah Adames MD [address] [place] [address] PCP - General Internal Medicine 06/16/22 documented as of this encounter
== END 2024-11-13 10:23 | disposition home or self-care (01) ==
LOC: HO.HOP 10:22
PROVIDERS: PCP Internal Medicine; Visit Provider Clinical Nurse Specialist Psychiatric/Mental Health
DX: F41.1 Generalized anxiety disorder (principal); F33.41 Major depressive disorder, recurrent, in partial remission; F90.2 Attention-deficit hyperactivity disorder, combined type
CPT/HCPCS: 99214

== ENCOUNTER → 2024-11-13 10:22 | Outpatient (BNVA) | payer BC, SELFPAY | PROVIDERS: PCP Internal Medicine; Visit Provider Clinical Nurse Specialist Psychiatric/Mental Health ==

== ENCOUNTER 2025-01-16 10:31 | Outpatient (AMB) | payer BC, SELFPAY ==
--- NOTE | 2025-01-16 09:51 | MHC.OFFVISPS ---
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: No Medication List - Last Reconciled 01/16/25 by Philomena Delgado, JOSE amlodipine 10 mg PO DAILY atorvastatin 10 mg PO DAILY blood sugar diagnostic (FreeStyle Lite Strips) As directed cholestyramine-aspartame 4 gram ea PO DAILY clonazepam 1 mg PO TID PRN dextroamphetamine-amphetamine 30 mg 1 tab PO BID ferrous sulfate 325 mg PO DAILY folic acid 1 mg PO DAILY ibuprofen 400 mg PO TID levothyroxine mcg PO DAILY metformin 500 mg PO BID oxycodone mg PO Q12H PRN paroxetine HCl 30 mg PO DAILY HPI- Psychiatric Chief Complaint: depression HPI Narrative: pt seen for follow re: depression, anxiety and ADHD pt reports much improvement mood improved, anxiety reduced, able to enjoy activiites more, less worry. sleep and appetite intact ADHD medications are effective. he is functioning well at work and home Past Psychiatric History: No IPLOC Dr. Galarza diagnosed him with ADHD 2014. Pt has been treated for anxiety, depression, ADHD and panic attacks for years; anxiety and panic attacks started in early 30s, depression has improved since on meds. He reports panic attacks decreased now to 1 x month or less Subjective Subjective Subjective Medication Compliance: Yes Side effects from medications: No Review of Systems Medical Review of Systems: unchanged Mental Status Exam Mental Status Exam Patient Appearance: Well Grooomed and Appropriate Patient Orientation: Person, Place, Time and Situation Level of Consciousness: Awake and Alert Patient Behavior: Appropriate and Cooperative Mood Description: Calm and Happy Affect Description: Calm and Happy Patient Cognition Impaired: No Ability to Follow Directions: Good Speech Pattern: Clear and Coherent Memory Description: Intact Hallucinations: None Delusions: Not Present Thought Process: Intact Thought Content: positive for Intact Judgement: Good Telehealth Telehealth Telehealth Platform: Other (please specify) ([email or web address]) Location of provider rendering services: practice address Location of patient: address on file Patient Identification confirmed using: Name, : Yes Telehealth method: video Patient verbally consented to treatment: Yes Patient verbally consented to billing insurance company: Yes Patient informed of any privacy concerns related to visit: Yes Minutes spent on Phone/Video with Pt.: 25 Assessment and Plan Assessment & Plan (1) YUSEF (generalized anxiety disorder): Status: Acute Code(s): F41.1 - Generalized anxiety disorder (2) Major depressive disorder, recurrent, in partial remission: Status: Acute Code(s): F33.41 - Major depressive disorder, recurrent, in partial remission (3) ADHD (attention deficit hyperactivity disorder), combined type: Status: Acute Code(s): F90.2 - Attention-deficit hyperactivity disorder, combined type Plan continue medications per below follow up in 2 months Medications: Changed From clonazepam 1 mg PO TID PRN 90 tabs 2RF anxiety To clonazepam 1 mg PO BID PRN 60 tabs 2RF anxiety Refilled dextroamphetamine-amphetamine 30 mg 1 tab PO BID 60 tabs 0RF paroxetine HCl 30 mg PO DAILY 90 tabs 1RF Counseling and coordination of Care Pt. Self Management counseling: Maintenance-social rhythm, Mod caffeine/ETOH intake, Nutrition education and improvement, Sleep hygiene and General coping skills Medication management counseling: Effectiveness, Side effects, Dosing range, Duration, Drug interaction and Adherence Diagnosis and Prognosis Counseling: Accuracy of diagnosis, Prognosis over time, Impact of diagnosis on life functions, Impact of family relationship, Problematic behaviors secondary to diagnosis and Adequacy of current interventions Details: I spent 35 minutes reviewing the record, seeing the patient and documenting in the medical record. Counseling provided to the patient/caregiver as outlined below. Addressed patient/caregiver concerns regarding current medication regime including effective adherence. Addressed patient/caregiver concerns regarding diagnosis and prognosis including accuracy of diagnosis, prognosis over time, impact of diagnosis. Addressed patient/caregiver concerns regarding impact of recent stressors. 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
--- OUTSIDE RECORDS SUMMARY | 2025-01-16 12:35 | XMS_ITS | Encounter Summary ---
Author Organization [facility] Address [address] [place] [address] Care Team Providers Care Call Or Contact Centre Coach Name Role Phone Hamzah Adames MD Primary Care Provider [phone] Encounter Details Date Type Department Care Team Description 07/07/2022 Social Work [facility] Oncology Services [address] [place] [id number] [facility] Social History Tobacco Use Types Packs/Day Years [...] on filedocumented in this encounter Care Teams Call Or Contact Centre Coach Relationship Specialty Start Date End Date Hamzah Adames MD [address] [place] [phone] PCP - General Hospitalist Medicine 06/23/22 documented as of this encounter
--- OUTSIDE RECORDS SUMMARY | 2025-01-16 12:35 | XMS_ITS | Clinical Summary ---
Author Organization [address] Address [address] [place] [phone] Phone Care Team Providers Care Non Clinical Advisor Name Role Phone Hamzah Adames MD Primary Care Provider [phone] Allergies No known active allergies Medications bisacodyL (Dulcolax, bisacodyl,) 5 mg EC tablet Take 2 tablets (10 mg total) by mouth. right before beginning bowel prep. Follow instructions given by office for timing. 05/29/20 22 Active blood-glucose meter kit 1 each by Other route 1 (one) time each day. 01/30/20 22 Active cholecalcifero l (VITAMIN D-3) 50 mcg (2,000 unit) tablet Take 1 tablet (2,000 Units total) by mouth 1 (one) time each day. 05/09/20 24 Active clonazePAM (KlonoPIN) 1 mg tablet Take 1 tablet (1 mg total) by mouth 1 (one) time each day if needed for anxiety. 09/08/20 19 Active FREESTYLE LANCETS MISC 1 EA by Other route 1 (one) time each day. 01/30/20 22 Active blood sugar diagnostic (FREESTYLE LITE STRIPS MISC) 1 EA by Other route 1 (one) time each day. 06/18/20 22 Active neomycin (MYCIFRADIN) 500 mg tablet Take 2 tablets (1,000 mg total) by mouth 4 (four) times a day. . Take at 8 am, noon, 4 pm and 8 pm the day before surgery 03/01/20 23 Active PARoxetine (PAXIL) 10 mg tablet Take 1 tablet (10 mg total) by mouth 1 (one) time each day in the morning. Active ferrous sulfate 325 mg (65 mg elemental iron) tablet TAKE 1 TABLET BY MOUTH EVERY DAY 90 tablet 09/19/20 24 Active atorvastatin (LIPITOR) 10 mg tablet Take 1 tablet (10 mg total) by mouth 1 (one) time each day. 90 tablet 1 10/19/19 25 Active amLODIPine (NORVASC) 10 mg tablet Take 1 tablet (10 mg total) by mouth 1 (one) time each day. 90 tablet 1 10/22/19 25 Active metFORMIN (GLUCOPHAGE) 500 mg tablet TAKE 1 TABLET IN THE MORNING WITH BREAKFAST AND 1 TABLET WITH DINNER. 180 tablet 1 11/02/19 25 Active levothyroxine (SYNTHROID, LEVOTHROID) 125 mcg tablet Take 1 tablet (125 mcg total) by mouth 1 (one) time each day. 90 tablet 1 10/30/19 25 Active folic acid (FOLVITE) 1 mg tablet TAKE 1 TABLET BY MOUTH EVERY DAY 90 tablet 1 11/22/19 25 Active ibuprofen (ADVIL,MOTRIN) 400 mg tablet TAKE 1 TABLET BY MOUTH EVERY 8 HOURS IF NEEDED FOR MILD PAIN. TAKE WITH FOOD 270 tablet 11/28/19 25 Active oxyCODONE (ROXICODONE) 5 mg immediate release tabletIndicati ons:Cancer, metastatic to liver (CMS/HCC) Take 1 tablet (5 mg total) by mouth every 8 (eight) hours if needed for severe pain for up to 90 doses. Max Daily Amount: 15 mg 90 tablet 12/04/19 25 Active cholestyramine light (PREVALITE) 4 gram packet TAKE 1 PACKET BY MOUTH 2 TIMES A DAY. *MIX PRIOR TO DRINKING* 180 packet 1 01/06/20 25 Active cholestyramine light (PREVALITE) 4 gram packet TAKE 1 PACKET BY MOUTH 2 TIMES A DAY. 60 packet 12/01/19 25 025 Discontinued Active Problems Problem Noted Date Diagnosed Date [...] Encounter [facility] [address] [place] [phone] Mary Jade MD Rectal cancer (CMS/HCC); Hypothyroidism, unspecified type; Essential hypertension, benign; Rectosigmoid junction carcinoma (CMS/HCC); DM (diabetes mellitus), type 2 with peripheral vascular complications (CMS/HCC); Mixed hyperlipidemia; Screening for prostate cancer Discharge Disposition: Home or Self Care 10/19/2024 10:45 AM EST Office Visit Adult Medicine [address] [phone] Stephanie Martinez PA Hypothyroidism, unspecified type (Primary Dx); Essential hypertension, benign; Rectosigmoid junction carcinoma (CMS/HCC); DM (diabetes mellitus), type 2 with peripheral vascular complications (CMS/HCC); Mixed hyperlipidemia; Screening for prostate cancer from Last 3 Months Immunizations Name Administration [...] complications (HCC); COMMENT: Dx 01/2022 Rectosigmoid junction carcinoma 06/16/2022 DX:Rectosigmoid junction carcinoma (HCC); COMMENT: Dx CN 06/12/2022 Dr Bronson [...] for your loved ones. For example, childcare director or elderly care for an older adult? [...] Assigned at Male 10/26/2024 12:56 PM EST Legal Sex Male 10:56 AM EST Gender Identity Male 10/26/2024 12:56 PM EST Sexual Orientation Straight 10/26/2024 12 :56 PM EST Obstetrics History Last Filed Vital Signs Vital [...] Care Team (Late st Contact Info) Description 01/22/2025 3:30 PM EDT Office Visit General Surgery - [place] [address] [phone] Trell Lopez MD [address] [address] 02/12/2025 9:30 AM EDT Office Visit [facility] Hematology Oncology [address] [place] [address] Mary Ramirez MD [address] [place] [address] Health Maintenance Due Date Last Done Comments Diabetes: Annual Foot Exam 1973 Diabetes: Annual Retina Eye Exam 1973 Hepatitis A Vaccines (1 of 2 - Risk 2-dose series) 1982 Pneumococcal Vaccine: 50+ Years (1 of 2 - PCV) 1982 Pneumococcal Vaccine: Pediatrics (0 to 5 Years) and At-Risk Patients (6 to 64 Years) (1 of 2 - PCV) 1982 Zoster Vaccines (1 of 2) 1982 COVID-19 Vaccine (3 - Modern a risk series) 07/17/2021 06/19/2021, 05/22/2021 HIV Screening 09/08/2022 Hepatitis B Vaccines (1 of 3 - Risk 3-dose series) 2023 RSV Immunization Adult Patients (1 - Risk 60-74 years 1-dose series) 2023 Colorectal Cancer Screening: Colonoscopy 06/12/2023 06/12/2022 Diabetes: Blood Sugar Contro l Test (HGBA1C) 04/25/2025 10/26/2024, 05/04/2024, 05/04/2024 Diabetes: Annual Urine Albumin-Creatinine Ratio (uACR) 05/04/2025 05/04/2024 Influenza Vaccine (Season Ended) 2025 08/10/2023, 07/31/2022, 10/21/2020 Depression Screening 10/18/2025 10/18/2024 Social Influencers of [...] patient's age to complete this topic Meningococcal B Vaccine Aged Out No l onger eligible based on patient's age to complete [...] 10/26/2024 1:04 PM EST Rectal cancer (CMS/HCC) HM URINE ALBUMIN CREATININE RATIO Routine 05/04/2024 HM COLONOSCOPY Routine 06/12/2022 HEPATITIS C SCREENING Routine [...] of malignant disease. Stephanie XIE LAB BLOOD ORDERABLES Fin al Result [facility] [address] [place] [address], [place] [phone] * (ABNORMAL) Thyroid stimulating hormone with reflex to free t4 and free t3 (10/26/2024 1:04 PM EST) TSH 9.63(H) 0.40 - 4.00 mcIU/mL LAB CHEMISTRY METHOD 10/26/2024 2:39 PM EST [facility] Blood Blood sample taken from central line / Unknown Existing Catheter / Unknown 10/26/2024 1:04 PM EST 10/26/2024 1:49 PM EST Stepahnie XIE LAB BLOOD ORDERABLES Fin al Result [facility] [address] [place] [address], [place] [phone] * Free thyroxine with reflex to free triiodothyronine (10/26/2024 1:04 PM EST) [facility] Free T4 1.36 0.70 - 1.80 ng/dL LAB CHEMISTRY METHOD 10/26/2024 3:04 PM EST [facility] Blood Blood sample taken from central line / Unknown Existing Catheter / Unknown 10/26/2024 1:04 PM EST 10/26/2024 1:49 PM EST Stephanie XIE LAB BLOOD ORDERABLES Fin al Result [facility] [address] [place] [address], [place] [phone] * (ABNORMAL) Lipid panel with reflex to direct LDL (10/26/2024 1:04 PM EST) Pathologist [facility] Cholesterol 166 0 - 200 mg/dL LAB CHEMISTRY METHOD 10/26/2024 2:44 PM EST [facility] Triglycerides 225(H) 0 - 150 mg/dL LAB CHEMISTRY METHOD 10/26/2024 2:44 PM [facility] HDL 36(L) >=40 mg/dL LAB CHEMISTRY METHOD 10/26/2024 2:44 PM [facility] LDL Calculated 85 0 - 100 mg/dL LAB CHEMISTRY METHOD 10/26/2024 2:44 PM [facility] VLDL Cholesterol Chema 45 mg/dL LAB CHEMISTRY METHOD 10/26/2024 2:44 PM [facility] Non HDL Chol. (LDL+VLDL) 130 <145 mg/dL LAB CHEMISTRY METHOD 10/26/2024 2:44 PM [facility] Chol/HDL Ratio 4.6(H) 0.0 - 4.4 LAB CHEMISTRY METHOD 10/26/2024 2:44 PM [facility] Blood Blood sample taken from central line / Unknown Existing Catheter / Unknown 10/26/2024 1:04 PM EST 10/26/2024 1:49 PM EST Stephanie XIE LAB BLOOD ORDERABLES Fin al Result [facility] [address] [place] [address], * (ABNORMAL) CBC auto differential (10/26/2024 1:04 PM EST) WBC 5.8 4.8 - 10.8 K/mcL LAB HEMETOLOGY METHOD 10/26/2024 2:02 PM [facility] RBC 4.60 4.50 - 5.50 M/mcL LAB HEMETOLOGY METHOD 10/26/2024 2:02 PM [facility] Hemoglobin 15.4 13.5 - 17.5 g/dL LAB HEMETOLOGY METHOD 10/26/2024 2:02 PM [facility] Hematocrit 43.3 42.0 - 54.0 % LAB HEMETOLOGY METHOD 10/26/2024 2:02 PM [facility] MCV 93.5 79.0 - 98.0 FL LAB HEMETOLOGY METHOD 10/26/2024 2:02 PM [facility] MCH 33.3(H) 27.0 - 32.0 pcg LAB HEMETOLOGY METHOD 10/26/2024 2:02 PM [facility] MCHC 35.6 32.0 - 37.0 g/dL LAB HEMETOLOGY METHOD 10/26/2024 2:02 PM [facility] RDW 12.8 11.0 - 15.0 % LAB HEMETOLOGY METHOD 10/26/2024 2:02 PM [facility] Platelets 232 130 - 400 K/mcL LAB HEMETOLOGY METHOD 10/26/2024 2:02 PM [facility] MPV 10.9 7.0 - 11.0 FL LAB HEMETOLOGY METHOD 10/26/2024 2:02 PM [facility] NRBC 0.0 <1.0 % LAB HEMETOLOGY METHOD 10/26/2024 2:02 PM [facility] NRBC Absolute 0.00 <0.10 K/mcL LAB HEMETOLOGY METHOD 10/26/2024 2:02 PM [facility] Neutrophils Relative 63.1 % LAB HEMETOLOGY METHOD 10/26/2024 2:02 PM [facility] Lymphocytes Relative 22.6 % LAB HEMETOLOGY METHOD 10/26/2024 2:02 PM [facility] Monocytes Relative 8.0 % LAB HEMETOLOGY METHOD 10/26/2024 2:02 PM [facility] Eosinophils Relative 4.5 % LAB HEMETOLOGY METHOD 10/26/2024 2:02 PM [facility] Basophils Relative 0.9 % LAB HEMETOLOGY METHOD 10/26/2024 2:02 PM [facility] Immature Granulocytes Relative 0.9 % LAB HEMETOLOGY METHOD 10/26/2024 2:02 PM [facility] Neutrophils Absolute 3.64 1.50 - 7.00 K/mcL LAB HEMETOLOGY METHOD 10/26/2024 2:02 PM [facility] Lymphocytes Absolute 1.30 1.00 - 5.00 K/mcL LAB HEMETOLOGY METHOD 10/26/2024 2:02 PM [facility] Monocytes Absolute 0.46 0.20 - 1.00 K/mcL LAB HEMETOLOGY METHOD 10/26/2024 2:02 PM [facility] Eosinophils Absolute 0.26 0.00 - 0.50 K/mcL LAB HEMETOLOGY METHOD 10/26/2024 2:02 PM [facility] Basophils Absolute 0.05 0.00 - 0.20 K/mcL LAB HEMETOLOGY METHOD 10/26/2024 2:02 PM [facility] Immature Granulocytes Absolute 0.05(H) 0.00 - 0.03 K/mcL LAB HEMETOLOGY METHOD 10/26/2024 2:02 PM [facility] Blood Blood sample taken from central line / Unknown Existing Catheter / Unknown 10/26/2024 1:04 PM EST 10/26/2024 1:49 PM EST us Subramony James SILVA LAB BLOOD ORDERABLE S Final Result [facility] [address] [place] [address], * Triiodothyronine free (10/26/2024 1:04 PM EST) T3, Free 300 230 - 420 pcg/dL LAB CHEMISTRY METHOD 10/26/2024 3:43 PM EST [facility] Blood Blood sample taken from central line / Unknown Existing Catheter / Unknown 10/26/2024 1:04 PM EST 10/26/2024 1:49 PM EST Stephanie Risa XIE LAB BLOOD ORDERABLES Fin al Result [facility] [address] [place] [address], [place] [phone] * Magnesium (10/26/2024 1:04 PM EST) Pathologist [facility] Magnesium 2.0 1.9 - 2.6 mg/dL LAB CHEMISTRY METHOD 10/26/2024 2:31 PM EST [facility] Blood Blood sample taken from central line / Unknown Existing Catheter / Unknown 10/26/2024 1:04 PM EST 10/26/2024 1:49 PM EST [facility] [place] XIE LAB BLOOD ORDERABLES Fin al Result Performing Organization Address [facility]/ZIP Co de Phone Number [facility] [address] [place] [address], [place] [phone] * Hemoglobin A1c (10/26/2024 1:04 PM EST) [facility] Hemoglobin A1C 5.9 <6.5 % LAB CHEMISTRY METHOD 10/26/2024 8:52 PM EST [facility] Mean Bld Glu Estim. 123 mg/dL LAB CHEMISTRY METHOD 10/26/2024 8:52 PM EST [facility] Blood Blood sample taken from central line / Unknown Existing Catheter / Unknown 10/26/2024 1:04 PM EST 10/26/2024 1:49 PM EST Stephanie Kingstonnegrita XIE LAB BLOOD ORDERABLES Fin al Result [facility] [address] [place] [address], [place] [phone] * CEA (10/26/2024 1:04 PM EST) [facility] CEA <2.0 0.0 - 5.0 ng/mL LAB CHEMISTRY METHOD 10/26/2024 2:45 PM EST [facility] Blood Blood sample taken from central line / Unknown Existing Catheter / Unknown 10/26/2024 1:04 PM EST 10/26/2024 1:49 PM EST [facility] - 10/26/2024 2:45 PM EST The Siemens Advia TouchOfModernaur Chemiluminescent Immunoassay is used. Results obtained with different assay methods or kits cannot be used interchangeably. Results cannot be interpreted as absolute evidence of the presence or absence of malignant disease. Mary Ramirez MD LAB BLOOD ORDERABLE S Final Result [facility] [address] [place] [address], * (ABNORMAL) Comprehensive metabolic panel (10/26/2024 1:04 PM EST) [facility] Sodium 136 133 - 145 mmol/L LAB CHEMISTRY METHOD 10/26/2024 2:44 PM [facility] Potassium 3.6 3.5 - 5.5 mmol/L LAB CHEMISTRY METHOD 10/26/2024 2:44 PM [facility] Chloride 103 96 - 110 mmol/L LAB CHEMISTRY METHOD 10/26/2024 2:44 PM [facility] CO2 26 21 - 32 mmol/L LAB CHEMISTRY METHOD 10/26/2024 2:44 PM [facility] Anion Gap 7 3 - 11 LAB CHEMISTRY METHOD 10/26/2024 2:44 PM [facility] Glucose 108(H) 70 - 100 mg/dL LAB CHEMISTRY METHOD 10/26/2024 2:44 PM [facility] BUN 10 5 - 25 mg/dL LAB CHEMISTRY METHOD 10/26/2024 2:44 PM [facility] Creatinine 0.88 0.70 - 1.30 mg/dL LAB CHEMISTRY METHOD 10/26/2024 2:44 PM [facility] eGFR 98 >=60 mL/min/1. 73m2 LAB CHEMISTRY METHOD 10/26/2024 2:44 PM [facility] Comment:Calculation based on the??Chronic Kidney Disease Epidemiology Collaboration (CKD-EPI) equation refit??without adjustment for race. BUN/Creatinine Ratio 11.4 LAB CHEMISTRY METHOD 10/26/2024 2:44 PM [facility] Calcium 9.5 8.5 - 10.5 mg/dL LAB CHEMISTRY METHOD 10/26/2024 2:44 PM [facility] AST (SGOT) 36 10 - 42 unit/L LAB CHEMISTRY METHOD 10/26/2024 2:44 PM [facility] ALT (SGPT) 65(H) 10 - 60 unit/L LAB CHEMISTRY METHOD 10/26/2024 2:44 PM [facility] Alkaline Phosphatase 65 42 - 121 unit/L LAB CHEMISTRY METHOD 10/26/2024 2:44 PM [facility] Total Protein 7.5 6.0 - 8.0 g/dL LAB CHEMISTRY METHOD 10/26/2024 2:44 PM [facility] Albumin 4.2 3.2 - 5.0 g/dL LAB CHEMISTRY METHOD 10/26/2024 2:44 PM [facility] Total Bilirubin 1.2 0.0 - 1.4 mg/dL LAB CHEMISTRY METHOD 10/26/2024 2:44 PM [facility] Blood Blood sample taken from central line / Unknown Existing Catheter / Unknown 10/26/2024 1:04 PM EST 10/26/2024 1:49 PM EST us Subramony Subramonia-Elicia MD LAB BLOOD ORDERABLE S Final Result [facility] [address] [place] [address], * Urine Albumin Creatinine Ratio (05/04/2024) Pathologist [facility] Urine Albumin Creatinine Ratio abstracted Historical Provider HEALTH MAINTENANCE Final Result * Colonoscopy (06/12/2022) Pathologist [facility] Colonoscopy no interpretation , abstracted Anatomical Region Laterality Modality Other Historical Provider HEALTH MAINTENANCE Final Result * Hepatitis C Screening (01/01/2014) [facility] Hepatitis C Screening abstracted Historical Provider HEALTH MAINTENANCE Final Result from Last 3 Months or Most Recently Relevant to Health Maintenance Insurance [employer] [place]) Care Teams Non Clinical Advisor Relationship Specialty Start Date End Date Hamzah Adames MD [address] [place] [address] PCP - General Internal Medicine 06/16/22
--- OUTSIDE RECORDS SUMMARY | 2025-01-16 12:35 | XMS_ITS | Clinical Summary ---
Author Organization [facility] Address [address] [place] [address] Care Team Providers Care Therapeutic Sales Specialist Name Role Phone Hamzah Adames MD Primary Care Provider [phone] Allergies No known active allergies Medications Medication [...] age to complete this topic Care Teams Therapeutic Sales Specialist Relationship Specialty Start Date End Date Hamzah Adames MD [address] [place] [phone] PCP - General Hospitalist Medicine 06/23/22
--- OUTSIDE RECORDS SUMMARY | 2025-01-16 12:35 | XMS_ITS ---
Author Organization [facility] Address [address] [place] [address] Care Team Providers Care Tempering Oven Operator Name Role Phone Hamzah Adames MD Primary Care Provider [phone] Active Problems Problem Noted Date Diagnosed Date [...] treatments are documented for this patient in [facility]. Treatments may have been administered in another system.
== END 2025-01-16 10:32 | disposition home or self-care (01) ==
LOC: HO.HOP 10:31
PROVIDERS: PCP Internal Medicine; Visit Provider Clinical Nurse Specialist Psychiatric/Mental Health
DX: F41.1 Generalized anxiety disorder (principal); F33.41 Major depressive disorder, recurrent, in partial remission; F90.2 Attention-deficit hyperactivity disorder, combined type
CPT/HCPCS: 99214

== ENCOUNTER 2025-03-22 09:50 | Outpatient (AMB) | payer BC, SELFPAY ==
--- NOTE | 2025-03-22 09:44 | MHC.OFFVISPS ---
Intake Intake Visit Reasons: depression Correctional Case Manager Required: No Medication List - Last Reconciled 03/22/25 by Philomena Delgado APRN amlodipine 10 mg PO DAILY atorvastatin 10 mg PO DAILY blood sugar diagnostic (FreeStyle Lite Strips) As directed cholestyramine-aspartame 4 gram ea PO DAILY clonazepam 1 mg PO BID PRN dextroamphetamine-amphetamine 30 mg 1 tab PO BID ferrous sulfate 325 mg PO DAILY folic acid 1 mg PO DAILY ibuprofen 400 mg PO TID levothyroxine mcg PO DAILY metformin 500 mg PO BID oxycodone mg PO Q12H PRN paroxetine HCl 30 mg PO DAILY HPI- Psychiatric Chief Complaint: depression HPI Narrative: pt seen via telehealth for follow up for depression, anxiety and ADHD. pt reports overall mood stable; He has URI right now so energy low and mood a little down; he reports recent increase anxiety in anticipation of CT scan for cancer follow up; however he learned that he is cancer free and its been 2 yrs so they are going to take his chemo port out. He feels relieved and happy about results. He is adherent with meds; He denies side effects; He denies SI or HI. Past Psychiatric History: No IPLOC Dr. Galarza diagnosed him with ADHD 2014. Pt has been treated for anxiety, depression, ADHD and panic attacks for years; anxiety and panic attacks started in early 30s, depression has improved since on meds. He reports panic attacks decreased now to 1 x month or less Subjective Subjective Subjective Medication Compliance: Yes Side effects from medications: No Review of Systems Medical Review of Systems: unchanged Mental Status Exam Mental Status Exam Patient Appearance: Well Grooomed and Appropriate Patient Orientation: Person, Place, Time and Situation Level of Consciousness: Awake, Appropriate and Alert Patient Behavior: Appropriate and Cooperative Mood Description: Appropriate and Blunted Affect Description: Appropriate and Blunted Patient Cognition Impaired: No Ability to Follow Directions: Good Speech Pattern: Clear and Appropriate Memory Description: Intact Hallucinations: None Delusions: Not Present Thought Process: Intact and Goal Oriented Thought Content: positive for Intact and positive for Goal Oriented Judgement: Good Telehealth Telehealth Telehealth Platform: Other (please specify) ([email or web address].hi) Location of provider rendering services: practice address Location of patient: address on file Patient Identification confirmed using: Name, : Yes Telehealth method: video Patient verbally consented to treatment: Yes Patient verbally consented to billing insurance company: Yes Patient informed of any privacy concerns related to visit: Yes Minutes spent on Phone/Video with Pt.: 20 Assessment and Plan Assessment & Plan (1) UYSEF (generalized anxiety disorder): Status: Acute Code(s): F41.1 - Generalized anxiety disorder (2) Major depressive disorder, recurrent, in partial remission: Status: Acute Code(s): F33.41 - Major depressive disorder, recurrent, in partial remission (3) ADHD (attention deficit hyperactivity disorder), combined type: Status: Acute Code(s): F90.2 - Attention-deficit hyperactivity disorder, combined type Medications: Refilled clonazepam 1 mg PO BID PRN 60 tabs 2RF anxiety paroxetine HCl 30 mg PO DAILY 90 tabs 1RF dextroamphetamine-amphetamine 30 mg 1 tab PO BID 60 tabs 0RF Counseling and coordination of Care Medication management counseling: Effectiveness, Side effects, Dosing range, Duration, Drug interaction and Adherence Diagnosis and Prognosis Counseling: Accuracy of diagnosis, Prognosis over time, Impact of diagnosis on life functions and Adequacy of current interventions Details: I spent 35 minutes reviewing the record, seeing the patient and documenting in the medical record. Counseling provided to the patient/caregiver as outlined below. Addressed patient/caregiver concerns regarding current medication regime including effective adherence. Addressed patient/caregiver concerns regarding diagnosis and prognosis including accuracy of diagnosis, prognosis over time, impact of diagnosis. Addressed patient/caregiver concerns regarding impact of recent stressors. PFS Medical History GERD (gastroesophageal reflux disease) Congenital hypothyroidism Colon cancer metastasized to liver Surgical History History of colostomy reversal Social History: lives with and youngest child, works FT in [employer] Substance History: none Trauma History: loss of sister to ovarian cancer, loss of niece to flu Coding Level of Care Code Tele Est Pt Level 4 (00700) Diagnoses YUSEF (generalized anxiety disorder) F41.1 Major depressive disorder, recurrent, in partial remission F33.41 ADHD (attention deficit hyperactivity disorder), combined type F90.2
--- OUTSIDE RECORDS SUMMARY | 2025-03-22 10:56 | XMS_ITS | Encounter Summary ---
Author Organization [facility] Address [address] [place] [address] Care Team Providers Care Draftsperson Name Role Phone Mario Mcnulty MD Primary Care Provider [phone] Mario Mcnulty MD Primary Care Provider [phone] Mario Mcnulty MD Unavailable [phone] Adam Nick DO Primary Care Provider Yuridia Veloz MD Primary Care Provider Hamzah Stone Primary Care Provider [phone] Encounter Details Date Type Department Care Team Description 04/18/2002 Orders Only Medical [address] [place] [id number] Mario Mcnulty MD [address] [place] [id number] Social History Tobacco Use Types Packs/Day Years Used Date Smoking Tobacco: Never Assessed Sex Assigned at Date Recorded Not on file Job Start Date Occupation Industry Not on file Not on file Not on file documented as of this encounter Plan of Treatment Not on file documented as of this encounter Visit Diagnoses Not on filedocumented in this encounter Care Teams Draftsperson Relationship Specialty Start Date End Date Mario Mcnulty MD [address] [place] [id number] PCP - General 12/09/00 09/13/20 Mario Mcnulty MD [address] [place] [address] PCP - General 09/14/20 01/23/21 Adam Nick DO [address] [place] [address] PCP - General Internal Medicine 01/24/21 11/03/21 Yuridia Hagen MD [address] [place] [address] PCP - General Internal Medicine 11/04/21 06/15/22 Hamzah Adames [address] [place], [place] [phone] PCP - General Internal Medicine 06/16/22 Mario Mcnulty MD [address] [place] [id number] 09/14/20 06/15/22 documented as of this encounter
== END 2025-03-22 09:51 | disposition home or self-care (01) ==
LOC: HO.HOP 09:51
PROVIDERS: PCP Internal Medicine; Visit Provider Clinical Nurse Specialist Psychiatric/Mental Health
DX: F41.1 Generalized anxiety disorder (principal); F33.41 Major depressive disorder, recurrent, in partial remission; F90.2 Attention-deficit hyperactivity disorder, combined type
CPT/HCPCS: 99214

== ENCOUNTER → 2025-03-22 09:50 | Outpatient (BNVA) | payer BC, SELFPAY | PROVIDERS: PCP Internal Medicine; Visit Provider Clinical Nurse Specialist Psychiatric/Mental Health ==

== ENCOUNTER 2025-06-21 09:33 | Outpatient (AMB) | payer BC, SELFPAY ==
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
--- NOTE | 2025-06-21 09:13 | MHC.OFFVISPS ---
Intake Intake Visit Reasons: depression Acid Pumper Required: No Medication List - Last Reconciled 06/21/25 by Philomena Delgado APRN amlodipine 10 mg PO DAILY atorvastatin 10 mg PO DAILY blood sugar diagnostic (FreeStyle Lite Strips) As directed cholestyramine-aspartame 4 gram ea PO DAILY clonazepam 1 mg PO BID PRN dextroamphetamine-amphetamine 30 mg 1 tab PO BID ferrous sulfate 325 mg PO DAILY folic acid 1 mg PO DAILY ibuprofen 400 mg PO TID levothyroxine mcg PO DAILY metformin 500 mg PO BID oxycodone mg PO Q12H PRN paroxetine HCl 30 mg PO DAILY HPI- Psychiatric Chief Complaint: depression HPI Narrative: pt seen via telehealth for follow up for depression, anxiety and ADHD. pt reports overall mood stable; He had his CT scan for cancer follow up and a recent colonoscopy was that was negative; He learned that he is cancer free and its been 2 yrs. He says this has helped his mood and outlook. He had one panic attack in interim triggered by nasal congestion that blocked easy breathing; he believes this triggered the panic attack; he says the clonazepam was helpful. He does not take it every day. He has decided to retire in August. He is looking forward to it. He is adherent with meds; He denies side effects; He denies SI or HI. Past Psychiatric History: No IPLOC Dr. Galarza diagnosed him with ADHD 2014. Pt has been treated for anxiety, depression, ADHD and panic attacks for years; anxiety and panic attacks started in early 30s, depression has improved since on meds. He reports panic attacks decreased now to 1 x month or less Subjective Subjective Subjective Medication Compliance: Yes Side effects from medications: No Review of Systems Medical Review of Systems: unchanged Mental Status Exam Mental Status Exam Patient Appearance: Well Grooomed and Appropriate Patient Orientation: Person, Place, Time and Situation Level of Consciousness: Awake, Appropriate and Alert Patient Behavior: Appropriate and Cooperative Mood Description: Appropriate and Blunted Affect Description: Appropriate and Blunted Patient Cognition Impaired: No Ability to Follow Directions: Good Speech Pattern: Clear and Appropriate Memory Description: Intact Hallucinations: None Delusions: Not Present Thought Process: Intact and Goal Oriented Thought Content: positive for Intact and positive for Goal Oriented Judgement: Good Telehealth Telehealth Telehealth Platform: Other (please specify) [email or web address] Location of provider rendering services: practice address Location of patient: address on file Patient Identification confirmed using: Name, : Yes Telehealth method: video Patient verbally consented to treatment: Yes Patient verbally consented to billing insurance company: Yes Patient informed of any privacy concerns related to visit: Yes Minutes spent on Phone/Video with Pt.: 25 Assessment and Plan Assessment & Plan (1) YUSEF (generalized anxiety disorder): Status: Acute Code(s): F41.1 - Generalized anxiety disorder (2) Major depressive disorder, recurrent, in partial remission: Status: Acute Code(s): F33.41 - Major depressive disorder, recurrent, in partial remission (3) ADHD (attention deficit hyperactivity disorder), combined type: Status: Acute Code(s): F90.2 - Attention-deficit hyperactivity disorder, combined type Plan continue medication as is follow up in 3 months Medications: Refilled clonazepam 1 mg PO BID PRN 60 tabs 2RF anxiety dextroamphetamine-amphetamine 30 mg 1 tab PO BID 60 tabs 0RF paroxetine HCl 30 mg PO DAILY 90 tabs 1RF Counseling and coordination of Care Pt. Self Management counseling: Mod caffeine/ETOH intake, Nutrition education and improvement, Sleep hygiene, Behavior activation and General coping skills Medication management counseling: Effectiveness, Side effects, Dosing range, Duration, Drug interaction and Adherence Diagnosis and Prognosis Counseling: Accuracy of diagnosis, Prognosis over time, Impact of diagnosis on life functions and Adequacy of current interventions Details: I spent 34 minutes reviewing the record, seeing the patient and documenting in the medical record. Counseling provided to the patient/caregiver as outlined below. Addressed patient/caregiver concerns regarding current medication regime including effective adherence. Addressed patient/caregiver concerns regarding diagnosis and prognosis including accuracy of diagnosis, prognosis over time, impact of diagnosis. Addressed patient/caregiver concerns regarding impact of recent stressors. 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
--- OUTSIDE RECORDS SUMMARY | 2025-06-21 11:08 | XMS_ITS ---
Author Organization [facility] Address [address] [place] [address] Phone Care Team Providers Care Awning Frame Maker Name Role Phone Hamzah Adames MD Primary Care Provider Active Problems Problem Noted Date Diagnosed Date Incontinence of feces 03/20/2024 Mixed hyperlipidemia 03/16/2023 Cancer, metastatic to liver (CMS/HCC V24, CMS/HC C V28) 06/30/2022 Rectosigmoid junction carcinoma (CMS/HCC V24, CM S/HCC V28) 06/16/2022 Overview (07/24/2024): Dx CN 06/12/2022 Dr Bronson referred pt to ONC and Surgery DM (diabetes mellitus), type 2 with peripheral vascular complications (CMS/HCC V24, CMS/HCC V28) 01/29/2022 Overview (07/24/2024): Dx 01/2022 Dyspnea on exertion 03/20/2021 Palpitations 03/20/2021 Attention-deficit hyperactiv ity disorder, predominantly hyperactive type 09/25/2015 Hypothyroidism 07/13/2011 Erectile dysfunction 08/14/2010 Major depressive disorder, r ecurrent episode, moderate (CMS/HCC V24, CMS/HCC V28) 02/28/2010 GERD (gastroesophageal reflux disease) 9 Anxiety state 03/25/2006 Essential hypertension, benign 03/25/2006 Pure hypercholesterolemia 03/25/2006 Current Oncology Plans No current plan information found. Past Plans No past plan information found. Radiation Treatments * No radiation treatments are documented for this patient in [facility]. Treatments may have been administered in another system. Lifetime Dose Tracking * Chemical Lifetime Dose Automatic Entry Manual Entr y Fluoro Time 0.04 minutes 0.04 minutes 0 minutes Air Kerma 1 mGy 1 mGy 0 mGy
--- OUTSIDE RECORDS SUMMARY | 2025-06-21 11:09 | XMS_ITS ---
Author Organization [facility] Address [address] [place] [address] Care Team Providers Care Data Management Manager Name Role Phone Hamzah Adames MD Primary Care Provider [phone] Active Problems Problem Noted Date Diagnosed Date [...] treatments are documented for this patient in [facility]. Treatments may have been administered in another system.
--- OUTSIDE RECORDS SUMMARY | 2025-06-21 11:09 | XMS_ITS | Clinical Summary ---
Author Organization [facility] Address [address] [place] [address] Phone Care Team Providers Care Tobacco Roller Name Role Phone Hamzah Adames MD Primary Care Provider Allergies No known active allergies Medications bisacodyL (Dulcolax, bisacodyl,) 5 mg EC tablet Take 2 tablets (10 mg total) by mouth. right before beginning bowel prep. Follow instructions given by office for timing. 05/29/20 22 Active blood-glucose meter kit 1 each by Other route 1 (one) time each day. 01/30/20 22 Active cholecalcifer ol (VITAMIN D-3) 50 mcg (2,000 unit) tablet [...] EVERY DAY 90 tablet 09/19/20 24 Active levothyroxine (SYNTHROID, LEVOTHROID) 125 mcg tablet Take 1 tablet (125 mcg total) by mouth 1 (one) time each day. 90 tablet 1 04/16/20 25 Active atorvastatin (LIPITOR) 10 mg tablet Take 1 tablet (10 mg total) by mouth 1 (one) time each day. 90 tablet 04/27/20 25 Active metFORMIN (GLUCOPHAGE) 500 mg tablet TAKE 1 TABLET IN THE MORNING WITH BREAKFAST AND 1 TABLET WITH DINNER. 180 tablet 1 05/03/20 25 Active ibuprofen (ADVIL,MOTRIN ) 400 mg tablet TAKE 1 TABLET BY MOUTH EVERY 8 HOURS IF NEEDED FOR MILD PAIN. TAKE WITH FOOD 90 tablet 1 05/08/20 25 Active amLODIPine (NORVASC) 10 mg tablet TAKE 1 TABLET BY MOUTH 1 TIME EACH DAY. 90 tablet 1 05/30/20 25 Active folic acid (FOLVITE) 1 mg tablet TAKE 1 TABLET BY MOUTH EVERY DAY 90 tablet 1 05/30/20 25 Active bisacodyL (DULCOLAX) 5 mg EC tablet Take 2 tablets by mouth right before beginning bowel prep. See instructions provided by the office 2 tablet 06/01/20 25 Active polyethylene glycol (Golytely) 236-22.74-6.7 4 -5.86 gram solution Take 4L by mouth once for one dose. May substitue any PEG. Starting at 2PM the day before your procedure drink 1 8oz glasses at your own pace until you complete half of the gallon. Finish 2nd half of the gallon at 8PM. 4000 mL 06/01/20 25 Active oxyCODONE (ROXICODONE) 5 mg immediate release tabletIndicat ions:Cancer, metastatic to liver (CMS/HCC V24, CMS/HCC V28) Take 1 tablet (5 mg total) by mouth every 8 (eight) hours if needed for severe pain for up to 90 doses. Max Daily Amount: 15 mg 90 tablet 06/06/20 25 Active omeprazole (PriLOSEC) [address] capsule Take 1 capsule (10 mg total) by mouth. Active amLODIPine (NORVASC) 10 mg tablet Take 1 tablet (10 mg total) by mouth 1 (one) time each day. 90 tablet 1 10/22/19 25 025 Discontinued folic acid (FOLVITE) 1 mg tablet TAKE 1 TABLET BY MOUTH EVERY DAY 90 tablet 1 11/22/19 25 025 Discontinued oxyCODONE (ROXICODONE) 5 mg immediate release tabletIndicat ions:Cancer, metastatic to liver (CMS/HCC V24, CMS/HCC V28) Take 1 tablet (5 mg total) by mouth every 8 (eight) hours if needed for severe pain for up to 90 doses. Max Daily Amount: 15 mg 90 tablet 05/02/20 25 025 Discontinued(R eorder) Active Problems Problem Noted Date Diagnosed Date Incontinence of feces 03/20/2024 Mixed hyperlipidemia 03/16/2023 Cancer, metastatic to liver (CMS/HCC V24, [facility] V28) 06/30/2022 Rectosigmoid junction carcinoma (CMS/HCC [...] Encounters Date Type Department Care Team Description 06/15/2025 9:22 AM EDT Anesthesia Event [facility] Endoscopy [address] [place] [phone] Tesfaye Lacy MD 06/15/2025 8:12 AM EDT - 06/15/2025 11:59 PM EDT Hospital Encounter [facility] Endoscopy [address] [place] [phone] Augie Coronado MD Dasilva, John E, MD Barnes, Tyanna R, CRNA Rectal cancer ([facility] V24, [facility] V28) Discharge Disposition: Home or Self Care 04/27/2025 8:39 AM EDT - 04/27/2025 11:59 PM EDT Hospital Encounter [facility] Interventional Radiology [address] [place] [phone] Rectosigmoid junction carcinoma ([facility] V24, [facility] V28) Discharge Disposition: Home or Self Care from Last 3 Months Immunizations Name Administration [...] 2 with peripheral vascular complications (CMS/HCC V24, [facility] V28) 01/29/2022 DX:DM (diabetes mellitus), type 2 with peripheral vascular complications (HCC); COMMENT: Dx 01/2022 Rectosigmoid junction carcin ney (CMS/HCC V24, [facility] V28) 06/16/2022 DX:Rectosigmoid junction ca rcinoma (HCC); COMMENT: Dx CN 06/12/2022 Dr Bronson referred pt to ONC and Surgery Rectosigmoid cancer ([facility] V24, [facility] V28) DX:Rectosigmoid cancer (HCC) Diabetes mellitus ([facility] V 24, [facility] V28) DX:Diabetes mellitus (HCC) Disease of thyroid gland DX:Dise ase of thyroid gland GERD (gastroesophageal reflux disease) DX:GERD (gastroesophageal reflux disease) Hypertension DX:Hypertension Neuropathy Family History Medical History Relation Name Comments [...] for your loved ones. For example, child and family services worker or elderly care for an older [...] Mass Index 29.84 06/15/2025 8:30 AM EDT Plan of Treatment Upcoming Encounters Date Type Department Care Team (Late st Contact Info) Description 07/02/2025 11:15 AM EDT Office Visit Adult Medicine [facility] [address] [place], [place] [phone] Hamzah Adames MD [address], [place] 07/30/2025 9:00 AM EDT Office Visit [facility] Hematology Oncology [address] [place] [phone] Mary Ramirez MD [address] [place] [address] Health Maintenance Due Date Last Done Comments Diabetes: Annual Foot Exam 1973 Diabetes: Annual Retina Eye Exam 1973 Hepatitis A Vaccines (1 of 2 - Risk 2-dose series) 1982 Pneumococcal Vaccine: 50+ Years (1 of 2 - PCV) 1982 Zoster Vaccines (1 of 2) 1982 COVID-19 Vaccine (3 - Moderna risk series) 07/17/2021 06/19/2021, 05/22/2021 HIV Screening 09/08/2022 Hepatitis B Vaccines (1 of 3 - Risk 3-dose series) 2023 RSV Immunization Adult Patients (1 - Risk 60-74 years 1-dose series) 2023 Diabetes: Blood Sugar Control Test (HGBA1C) 04/25/2025 10/26/2024, 05/04/2024, 05/04/2024 Diabetes: Annual Urine Albumin-Creatinine Ratio (uACR) 05/04/2025 05/04/2024 Influenza Vaccine (#1) 2025 , 07/31/2022, 10/21/2020 Social Influencers of Health Screening 10/18/2025 10/18/2024 Diabetes: Annual GFR (Glomerular Filtration Rate) 02/16/2026 02/16/2025, 10/26/2024, 05/04/2024, Additional history exists Hypertension/CHF/CAD Annual BMP Blood Test 02/16/2026 02/16/2025, 10/26/2024, 05/04/2024, Additional history exists Colorectal Cancer Screening: Colonoscopy 06/15/2026 06/15/2025, 06/12/2022 Cholesterol Screening (Lipid Panel) 10/26/2029 10/26/2024, 05/04/2024, 05/04/2024 DTaP,Tdap,and Td Vaccines (4 - Td or Tdap) 01/30/2032 01/29/2022, 10/04/2011, 10/29/2006 Hepatitis C Screening Completed 01/01/2014 Depression Screening Completed 10/18/2024 HIB Vaccines Aged Out No longer eligi [...] 20 months Aged Out No longer eligible based on patient's age to complete this topic Varicella Vaccines Aged Out No longer eligible based on patient's age to complete this topic Procedures Procedure Name Priority Date/Time Associated Diagnosis Comments COLONOSCOPY Routine 06/15/2025 9:58 AM EDT Rectal cancer (CMS/HCC V24, CMS/HCC V28) TISSUE EXAM Routine 06/15/2025 9:43 AM EDT Rectal cancer (CMS/HCC V24, CMS/HCC V28) IR REMOVE TUNNELED CVAD W SUBQ PORT OR PUMP Routine 04/27/2025 10:18 AM EDT Rectosigmoid junction carcinoma (CMS/HCC V24, CMS/HCC V28) COMPREHENSIVE METABOLIC PANEL Routine 02/16/2025 9:30 AM EDT Rectosigmoid junction carcinoma (CMS/HCC V24, CMS/HCC V28) HEMOGLOBIN A1C Routine 10/26/2024 1:04 PM EST Hypothyroidism, unspecified type Essential hypertension, benign Rectosigmoid junction carcinoma (CMS/HCC V24, CMS/HCC V28) DM (diabetes mellitus), type 2 with peripheral vascular complications (CMS/HCC V24, CMS/HCC V28) Mixed hyperlipidemia Screening for prostate cancer LIPID PANEL WITH REFLEX TO DIRECT LDL Routine 10/26/2024 1:04 PM EST Hypothyroidism, unspecified type Essential hypertension, benign Rectosigmoid junction carcinoma (CMS/HCC V24, CMS/HCC V28) DM (diabetes mellitus), type 2 with peripheral vascular complications (CMS/HCC V24, CMS/HCC V28) Mixed hyperlipidemia Screening for prostate cancer URINE ALBUMIN CREATININE RATIO Routine 05/04/2024 HEPATITIS C SCREENING Routine 01/01/2014 from Last 3 Months or Most Recently Relevant to Health Maintenance Results * COLONOSCOPY Anesthesia - MAC; [facility] ENDOSCOPY (06/15/2025 9:58 AM EDT) Anatomical Region Laterality Modality Endoscopy 06/15/2025 9:21 AM EDT Impressions 06/15/2025 10:03 AM EDT - Patent end-to-end colo-colonic anastomosis, characterized by mild stenosis. - One 10 mm polyp in the ascending colon, removed with a hot snare. Resected and retrieved. Recommendation: - Await pathology results. - Repeat colonoscopy in 3 years for surveillance. Narrative 06/15/2025 10:03 AM EDT [facility] GI Patient Name: Fidel Soriano Procedure Date: 06/15/2025 9:21 AM Date of [...] verified by the physician, the nurse, the shaker washer and the nursery technician in the pre-procedure area in the [...] was minimal. Procedure Code(s): --- Professional --- 85982, Colonoscopy, flexible; with removal of tumor(s), polyp(s), or other lesion(s) by snare technique Diagnosis Code(s): --- Professional --- Z98.0, Intestinal bypass and anastomosis status D12.2, Benign neoplasm of ascending colon CPT copyright 2020 [employer]. All rights reserved. The codes documented in this report are preliminary and upon account receivable clerk review may be revised to meet current compliance requirements. Augie Coronado MD 06/15/2025 10:03:42 AM This report has been signed electronically.Augie Coronado MD Number of Addenda: 0 Note Initiated On: 06/15/2025 9:21 AM Scope Withdrawal Time: 0 hours 15 minutes 53 seconds Scope In: 9:29:43 AM Scope Out: 9:58:00 AM Endoscopy Department at [facility] - [address] [place] [phone] Procedure Note Augie Coronado MD - 06/15/2025 [facility] GI Patient Name: Fidel Soriano Procedure Date: 06/15/2025 9:21 AM Date of [...] the physician, the nurse, theanesthetist and the nursery technician in the pre-procedure area in the [...] normal. There was evidence of a prior [id number]-vg-opedujs-colonic anastomosis in the recto-sigmoid colon. This was patent and was characterized by mild stenosis. The anastomosis was traversed. A 10 mm polyp was found in the ascending colon. The polyp was semi-pedunculated. The polyp was removed with a hot snare. Resection and retrieval were complete. Estimated blood loss was minimal. Procedure Code(s): --- Professional --- 89685, Colonoscopy, flexible; with removal of tumor(s), polyp(s), or other lesion(s) by snare technique Diagnosis Code(s): --- Professional --- Z98.0, Intestinal bypass and anastomosis status D12.2, Benign neoplasm of ascending colon CPT copyright 2020 [employer]. All rights reserved. The codes documented in this report are preliminary and upon account receivable clerk reviewmay be revised to meet current compliance requirements. Augie Coronado MD 06/15/2025 10:03:42 AM This report has been signed electronically.Augie Coronado MD Number of Addenda: 0 Note Initiated On: 06/15/2025 9:21 AM Scope Withdrawal Time: 0 hours 15 minutes 53 seconds Scope In: 9:29:43 AM Scope Out: 9:58:00 AM Endoscopy Department at [facility] - [address] [place] [phone] IMPRESSION: - Patent end-to-end colo-colonic anastomosis, characterized [...] - Tubular adenoma. 06/18/2025 12:31 PM EDT [facility] Gross Description A. Large Intestine, [...] cassette, three pieces. TS 06/18/2025 12:31 PM T [facility] Disclaimer Unless otherwise specified, all tissue is 10% NB formalin fixed and paraffin embedded. 06/18/2025 12:31 PM T [facility] Tissue Ascending colon structure / Unknown 06/15/2025 9:43 AM EDT 06/15/2025 10:24 AM EDT Augie Coronado MD LAB PATHOLOGY ORDERABLES Fi nal Result [facility] ([facility]) [facility] [address] [place] [address], * IR Remove Tunneled CVAD w Subq Port or Pump (04/27/2025 10:18 AM EDT) Anatomical Region Laterality Modality N/A Interventional R adiology 04/27/2025 12:3 7 PM EDT Narrative 04/27/2025 12:37 PM EDT INDICATION: Port-A-Cath removal Technique: Chest wall around the pre-existing Port-A-Cath was draped and prepped using maximal sterile barrier. 2% buffered lidocaine was used as local anesthetic. Approximately 3 cm incision was performed along the cephalad aspect of the Port-A-Cath. The Port-A-Cath was dissected from the surrounding fibrotic reaction. The Port-A-Cath was removed completely and the pocket was closed with deep 3-0 Vicryl sutures. Dermabond application was applied followed by a dressing. Total patient dose (air kerma): 1 mGy CONCLUSION: Successful removal of Port-A-Cath. -------- FINAL REPORT -------- Dictated By: Hemanth Mojica Dictated Date: 04/27/2025 12:37 ET Assigned Physician: Hemanth Mojica Reviewed and Electronically Signed By: Hemanth Mojica Signed Date: 04/27/2025 12:37 ET Workstation ID: [id number] Transcribed By: Self Edit Transcribed Date: 04/27/2025 12:37 ET Procedure Note Hemanth Mojica MD - 04/27/2025 INDICATION: Port-A-Cath removal Technique: Chest wall around the pre-existing Port-A-Cath was draped andprepped using maximal sterile barrier. 2% buffered lidocaine was used aslocal anesthetic. Approximately 3 cm incision was performed along thecephalad aspect of the Port-A-Cath. The Port-A-Cath was dissected from thesurrounding fibrotic reaction. The Port-A-Cath was removed completely andthe pocket was closed with deep 3-0 Vicryl sutures. Dermabond applicationwas applied followed by a dressing. Total patient dose (air kerma): 1 mGy CONCLUSION: Successful removal of Port-A-Cath. -------- FINAL REPORT -------- Dictated By: Hemanth Mojica Dictated Date: 04/27/2025 12:37 ET Assigned Physician: Hemanth Mojica Reviewed and Electronically Signed By: Hemanth Mojica Signed Date: 04/27/2025 12:37 ET Workstation ID: [id number] Transcribed By: Self Edit Transcribed Date: 04/27/2025 12:37 ET Mary Ramirez MD IMG IR PROCEDURES F inal Result * (ABNORMAL) Comprehensive metabolic panel (02/16/2025 9:30 AM EDT) Sodium 138 133 - 145 mmol/L LAB CHEMISTRY METHOD 02/16/2025 12:03 PM [facility] Potassium 3.2(L) 3.5 - 5.5 mmol/L LAB CHEMISTRY METHOD 02/16/2025 12:03 PM [facility] Chloride 103 96 - 110 mmol/L LAB CHEMISTRY METHOD 02/16/2025 12:03 PM [facility] CO2 26 21 - 32 mmol/L LAB CHEMISTRY METHOD 02/16/2025 12:03 PM [facility] Anion Gap 9 3 - 11 LAB CHEMISTRY METHOD 02/16/2025 12:03 PM [facility] Glucose 115(H) 70 - 100 mg/dL LAB CHEMISTRY METHOD 02/16/2025 12:03 PM [facility] BUN 10 5 - 25 mg/dL LAB CHEMISTRY METHOD 02/16/2025 12:03 PM [facility] Creatinine 0.98 0.70 - 1.30 mg/dL LAB CHEMISTRY METHOD 02/16/2025 12:03 PM [facility] eGFR 88 >=60 mL/min/1. 73m2 LAB CHEMISTRY METHOD 02/16/2025 12:03 PM [facility] Comment:Calculation based on the Chronic Kidney Disease Epidemiology Collaboration (CKD-EPI) equation refit without adjustment for race. BUN/Creatinine Ratio 10.2 LAB CHEMISTRY METHOD 02/16/2025 12:03 PM [facility] Calcium 9.6 8.5 - 10.5 mg/dL LAB CHEMISTRY METHOD 02/16/2025 12:03 PM [facility] AST (SGOT) 25 10 - 42 unit/L LAB CHEMISTRY METHOD 02/16/2025 12:03 PM [facility] ALT (SGPT) 41 10 - 60 unit/L LAB CHEMISTRY METHOD 02/16/2025 12:03 PM [facility] Alkaline Phosphatase 60 42 - 121 unit/L LAB CHEMISTRY METHOD 02/16/2025 12:03 PM [facility] Total Protein 7.3 6.0 - 8.0 g/dL LAB CHEMISTRY METHOD 02/16/2025 12:03 PM [facility] Albumin 4.0 3.2 - 5.0 g/dL LAB CHEMISTRY METHOD 02/16/2025 12:03 PM [facility] Total Bilirubin 1.1 0.0 - 1.4 mg/dL LAB CHEMISTRY METHOD 02/16/2025 12:03 PM [facility] Blood Venous blood specimen / Unknown Venipuncture / Unknown 02/16/2025 9:30 AM EDT 02/16/2025 11:36 AM EDT us Mary Ramirez MD LAB BLOOD ORDERABLE S Final Result [facility] [address] [place] [address], [place] [phone] * (ABNORMAL) Lipid panel with reflex to direct LDL (10/26/2024 1:04 PM EST) [facility] Cholesterol 166 0 - 200 mg/dL LAB CHEMISTRY METHOD 10/26/2024 2:44 PM EST [facility] Triglycerides 225(H) 0 - 150 mg/dL LAB CHEMISTRY METHOD 10/26/2024 2:44 PM EST [facility] HDL 36(L) >=40 mg/dL LAB CHEMISTRY METHOD 10/26/2024 2:44 PM EST [facility] LDL Calculated 85 0 - 100 mg/dL LAB CHEMISTRY METHOD 10/26/2024 2:44 PM EST [facility] VLDL Cholesterol Chema 45 mg/dL LAB CHEMISTRY METHOD 10/26/2024 2:44 PM EST [facility] Non HDL Chol. (LDL+VLDL) 130 <145 mg/dL LAB CHEMISTRY METHOD 10/26/2024 2:44 PM EST [facility] Chol/HDL Ratio 4.6(H) 0.0 - 4.4 LAB CHEMISTRY METHOD 10/26/2024 2:44 PM EST [facility] Blood Blood sample taken from central line / Unknown Existing Catheter / Unknown 10/26/2024 1:04 PM EST 10/26/2024 1:49 PM EST Stephanie XIE LAB BLOOD ORDERABLES Fin al Result [facility] [address] [place] [address], [place] [phone] * Hemoglobin A1c (10/26/2024 1:04 PM EST) [facility] Signature Hemoglobin A1C 5.9 <6.5 % LAB CHEMISTRY METHOD 10/26/2024 8:52 PM EST [facility] Mean Bld Glu Estim. 123 mg/dL LAB CHEMISTRY METHOD 10/26/2024 8:52 PM EST [facility] Blood Blood sample taken from central line / Unknown Existing Catheter / Unknown 10/26/2024 1:04 PM EST 10/26/2024 1:49 PM EST Stephanie XIE LAB BLOOD ORDERABLES Fin al Result [facility] [address] [place] [address], * Urine Albumin Creatinine Ratio (05/04/2024) Urine Albumin Creatinine Ratio abstracted Historical Provider HEALTH MAINTENANCE Final Result * Hepatitis C Screening (01/01/2014) Pathologist [facility] Hepatitis C Screening abstracted Historical Provider HEALTH MAINTENANCE Final Result from Last 3 Months or Most Recently Relevant to Health Maintenance Insurance [place]) Care Teams Tobacco Roller Relationship Specialty Start Date End Date Hamzah Adames MD [address] [place] [address] PCP - General Internal Medicine 06/16/22
--- OUTSIDE RECORDS SUMMARY | 2025-06-21 11:09 | XMS_ITS ---
Author Name [facility] Organization Unknown Care Team Organization Name Specialty Phone Email Start Date End Da te [facility] ESDRAS Primary Care 09/22/2023 05/29/2024 [facility] Mary Ramirez Primary Care 01/12/2023 05/29/2024 [facility] Holger Anderson Primary Care 08/18/202205/29
--- OUTSIDE RECORDS SUMMARY | 2025-06-21 11:09 | XMS_ITS | Clinical Summary ---
Author Organization [facility] Address [address] [place] [address] Care Team Providers Care Welding Setter Name Role Phone Hamzah Adames MD Primary Care Provider [phone] Allergies No known active allergies Medications Medication [...] 123 07/27/2024 9:30 AM EDT Temperature 36.6 C (97.8 F) 07/27/2024 9:30 AM EDT Respiratory Rate 18 07/01/2023 12:30 PM EDT [...] years 1-dose series) 2023 Influenza Vaccine (#1) 2025 10/21/2020 DTap / Tdap / Td (3 - Td or Tdap) 01/30/2032 01/29/2022, 10/04/2011, 10/29/2006 Hepatitis B Vaccines Aged Out No long er eligible based on patient's age to complete this topic RSV Ped < 20 months Aged Out No longe r eligible based on patient's age to complete this topic Care Teams Welding Setter Relationship Specialty Start Date End Date Hamzah Adames MD [address] [place] [address] [phone] PCP - General Hospitalist Medicine 06/23/22
--- OUTSIDE RECORDS SUMMARY | 2025-06-21 11:09 | XMS_ITS | Encounter Summary ---
Author Organization [facility] Address [address] [place] [address] Care Team Providers Care Preschool Assistant Name Role Phone Hamzah Adames MD Primary Care Provider [phone] Encounter Details Date Type Department Care Team Description 07/07/2022 Social Work [facility] Oncology Services [address] [place] [phone] [facility] Social History Tobacco Use Types Packs/Day Years [...] on filedocumented in this encounter Care Teams Preschool Assistant Relationship Specialty Start Date End Date Hamzah Adames MD [address] [place] [phone] PCP - General Hospitalist Medicine 06/23/22 documented as of this encounter
== END 2025-06-21 09:34 | disposition home or self-care (01) ==
LOC: HO.HOP 09:33
PROVIDERS: PCP Internal Medicine; Visit Provider Clinical Nurse Specialist Psychiatric/Mental Health
DX: F41.1 Generalized anxiety disorder (principal); F33.41 Major depressive disorder, recurrent, in partial remission; F90.2 Attention-deficit hyperactivity disorder, combined type
CPT/HCPCS: 99214

== ENCOUNTER 2025-09-17 09:48 | Outpatient (AMB) | payer BC, SELFPAY ==
--- NOTE | 2025-09-17 09:04 | A.OFFPSYCH_ITS ---
Intake Intake Visit Reasons: depression [employer] Required: No Medication List - Last Reconciled 09/17/25 by Philomena Delgado, JOSE amlodipine 10 mg PO DAILY atorvastatin 10 mg PO DAILY blood sugar diagnostic (FreeStyle Lite Strips) As directed cholestyramine-aspartame 4 gram ea PO DAILY clonazepam 1 mg PO BID PRN dextroamphetamine-amphetamine 30 mg 1 tab PO BID ferrous sulfate 325 mg PO DAILY folic acid 1 mg PO DAILY ibuprofen 400 mg PO TID levothyroxine mcg PO DAILY metformin 500 mg PO BID oxycodone mg PO Q12H PRN paroxetine HCl 30 mg PO DAILY HPI- Psychiatric Chief Complaint: depression HPI Narrative: pt seen via telehealth for follow up for depression, anxiety and ADHD. pt reports overall mood stable; He retired the day before . he is glad to be retired but iit has been stressful as he did not know it would take 6 weeks to process his paperwork which has delayed any income and delayed health insurance. He is coping despite the high stress financially around the holidays. He is adherent with meds; He denies side effects; He denies SI or HI. Past Psychiatric History: No IPLOC Dr. Galarza diagnosed him with ADHD 2014. Pt has been treated for anxiety, depression, ADHD and panic attacks for years; anxiety and panic attacks started in early 30s, depression has improved since on meds. He reports panic attacks decreased now to 1 x month or less Subjective Subjective Medication Compliance: Yes Side effects from medications: No Review of Systems Medical Review of Systems: unchanged Mental Status Exam Mental Status Exam Patient Appearance: Well Grooomed and Appropriate Patient Orientation: Person, Place, Time and Situation Level of Consciousness: Awake, Appropriate and Alert Patient Behavior: Appropriate and Cooperative Mood Description: Appropriate and Anxious Affect Description: Appropriate and Anxious Patient Cognition Impaired: No Ability to Follow Directions: Good Speech Pattern: Clear and Appropriate Memory Description: Intact Hallucinations: None Delusions: Not Present Thought Process: Intact and Goal Oriented Thought Content: positive for Intact and positive for Goal Oriented Judgement: Good Telehealth Telehealth Telehealth Platform: [facility] Location of provider rendering services: practice address Location of patient: address on file Patient Identification confirmed using: Name, : Yes Telehealth method: video Patient verbally consented to treatment: Yes Patient verbally consented to billing insurance company: Yes Patient informed of any privacy concerns related to visit: Yes Minutes spent on Phone/Video with Pt.: 18 Assessment and Plan Assessment & Plan (1) YUSEF (generalized anxiety disorder): Status: Acute Code(s): F41.1 - Generalized anxiety disorder (2) Major depressive disorder, recurrent, in partial remission: Status: Acute Code(s): F33.41 - Major depressive disorder, recurrent, in partial remission (3) ADHD (attention deficit hyperactivity disorder), combined type: Status: Acute Code(s): F90.2 - Attention-deficit hyperactivity disorder, combined type Plan continue medication as is follow up in 3 months Medications: Refilled clonazepam 1 mg PO BID PRN 60 tabs 2RF anxiety paroxetine HCl 30 mg PO DAILY 90 tabs 1RF Counseling and coordination of Care Pt. Self Management counseling: Mod caffeine/ETOH intake, Nutrition education and improvement, Sleep hygiene, Behavior activation and General coping skills Medication management counseling: Effectiveness, Side effects, Dosing range, Duration, Drug interaction and Adherence Diagnosis and Prognosis Counseling: Accuracy of diagnosis, Prognosis over time, Impact of diagnosis on life functions and Adequacy of current interventions Details: I spent 24 minutes reviewing the record, seeing the patient and documenting in the medical record. Counseling provided to the patient/caregiver as outlined below. Addressed patient/caregiver concerns regarding current medication regime including effective adherence. Addressed patient/caregiver concerns regarding diagnosis and prognosis including accuracy of diagnosis, prognosis over time, impact of diagnosis. Addressed patient/caregiver concerns regarding impact of recent stressors. 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
== END 2025-09-17 09:49 | disposition home or self-care (01) ==
LOC: HO.HOP 09:48
PROVIDERS: PCP Internal Medicine; Visit Provider Clinical Nurse Specialist Psychiatric/Mental Health
DX: F41.1 Generalized anxiety disorder (principal); F33.41 Major depressive disorder, recurrent, in partial remission; F90.2 Attention-deficit hyperactivity disorder, combined type
CPT/HCPCS: 99213